=== PATIENT | male | born 1930 | race Caucasian/White ===

== ENCOUNTER 2017-02-26 19:17 | Emergency (ER) | payer MEDICARE ==
[2017-02-26] MEDS ORDERED: Ondansetron HCl/PF 4 MG/2 ML Vial ONE (19:57)
[2017-02-26 20:04] LABS: #Eosinphils 0.2 thou/uL (0.0-0.7); #Lymphocytes 2.3 thou/uL (1.20-3.40); #Monocytes 0.8 thou/uL (0.11-0.59); #Neutrophils 6.6 thou/uL (1.40-6.50); %Basophils 0.1 % (0.0-1.0); %Eosinophils 2.1 % (0.0-10.0); %Lymphocytes 23.2 % (21.0-51.0); %Monocytes 7.7 % (0.0-10.0); Hemoglobin 16.2 g/dL (14.0-18.0); Mean Corpuscular HGB CONC 33.9 g/dL (32.0-36.0); Mean Corpuscular Hemoglobin 30.4 pg (27.0-31.0); Mean Corpuscular Volume 89.4 fl (80.0-94.0); Mean Platelet Volume 6.7 fL (7.4-10.4); Platelet Count 330 thou/uL (130-400); RBC Distribution Width 12.5 % (11.5-14.5); Red Blood Cell (RBC) Count 5.33 mill/uL (4.70-6.10); White Blood Cell (WBC) Count 9.8 thou/uL (4.8-10.8)
--- NOTE | 2017-02-26 20:21 | RAD ---
CHEST TWO VIEW 02/26/17 HISTORY: Nausea and vomiting. Upper respiratory infection. COMPARISON: None. FINDINGS: Lungs without focal air space consolidation, pneumothorax or effusion. The cardiac silhouette and med iastinal contours are within normal limits. No acute osseous abnormality. IMPRESSION: No acute intrathoracic abnormality. POS: [facility]
[2017-02-26 20:27] LABS: ALT (SGPT) 37 U/L (8-55); AST (SGOT) 33 U/L (5-34); Alkaline Phosphatase 63 U/L (40-150); Anion Gap 15 mmol/L (10-20); BUN (Urea Nitrogen) 17 mg/dL (8.4-25.7); Bilirubin, Total 0.9 mg/dL (0.2-1.2); CK (CPK) 44 U/L (30-200); Calc. Creatinine Clearance 0 mL/min (70-130); Calcium 9.6 mg/dL (7.8-10.44); Carbon Dioxide 25 mmol/L (23-31); Chloride 99 mmol/L (98-107); Estimated GFR-MDRD Greater than 90; Glucose 138 mg/dL (83-110); Lipase 19 U/L (8-78); Potassium 3.8 mmol/L (3.5-5.1); Sodium 135 mmol/L (136-145)
[2017-02-26 20:30] LABS: Troponin I 0.012 ng/mL (< 0.028)
== END 2017-02-26 21:17 | disposition home or self-care (01) ==
LOC: ERS 19:17
DX: R11.2 Nausea with vomiting, unspecified (principal); R05 Cough
CPT/HCPCS: 36415; 71046; 80053; 82550; 82553; 83690; 84484; 85025; 93005; 94760; 96374; J2405

== ENCOUNTER 2017-10-18 13:32 | Outpatient (CLI) | payer MEDICARE ==
--- NOTE | 2017-10-20 20:12 | ULT ---
Arterial Doppler performed on 10/18/2017. Bilateral arterial Doppler ultrasound was performed. On the right, femoral, popliteal, posterior tibial and dorsalis pedis waveforms are biphasic with go od peak area of the curve. There is no step-off. Ankle-brachial index is 0.62. On the left, femoral, popliteal, posterior tibial, dorsalis pedis waveforms are biphasic with good pe ak area of the curve. There was a slight step off between the femoral and popliteal waveforms, but c linical significance of this should be correlated. Ankle-brachial index is 0.59. ASSESSMENT: Normal waveforms, but depressed ankle-brachial indices bilaterally consistent with claudication.
== END 2017-10-18 13:33 | disposition home or self-care (01) ==
LOC: ULT 13:32
PROVIDERS: ATTEND Family Medicine
DX: I73.9 Peripheral vascular disease, unspecified (principal)
CPT/HCPCS: 93922

== ENCOUNTER 2019-03-19 11:24 | Outpatient (CLI) | payer MEDICARE ==
--- NOTE | 2019-03-19 14:03 | RAD ---
CHEST 2 VIEWS: INDICATION: History of cough. COMPARISON: Prior exam dated 02/26/2017. FINDINGS: There are patchy areas of interstitial and ground-glass opacities seen throughout both lungs and pred ominantly in the upper lobe distribution. A prominent area is seen within the right lower lobe as we ll. No hansel consolidation is evident. No pleural effusion or pneumothorax is evident. Heart size is normal. No acute osseous abnormality is evident. IMPRESSION: Patchy areas of peripheral interstitial and airspace opacities suspicious for changes of bronchopneum onia. Recommend radiographic followup to resolution. CODE T POS: [facility]
== END 2019-03-19 11:25 | disposition home or self-care (01) ==
LOC: BICRAD 11:24
PROVIDERS: ATTEND Physician Assistant
DX: R05 Cough (principal); R91.8 Other nonspecific abnormal finding of lung field
CPT/HCPCS: 71046; 80048; 85025

== ENCOUNTER 2019-03-20 12:10 | Inpatient (IN) | payer MEDICARE ==
[2019-03-20 13:01] LABS: #Eosinphils 0.1 thou/uL (0.0-0.7); #Lymphocytes 1.7 thou/uL (1.20-3.40); #Monocytes 1.7 thou/uL (0.11-0.59); #Neutrophils 13.5 thou/uL (1.40-6.50); %Basophils 0.1 % (0.0-1.0); %Eosinophils 0.4 % (0.0-10.0); %Lymphocytes 9.8 % (21.0-51.0); %Monocytes 10.2 % (0.0-10.0); %Neutrophils 79.6 % (42.0-75.0); Hemoglobin 15.9 g/dL (14.0-18.0); Mean Corpuscular HGB CONC 31.7 g/dL (32.0-36.0); Mean Corpuscular Hemoglobin 27.6 pg (27.0-31.0); Mean Platelet Volume 7.6 fL (7.4-10.4); Platelet Count 293 thou/uL (130-400); RBC Distribution Width 12.2 % (11.5-14.5); Red Blood Cell (RBC) Count 5.77 mill/uL (4.70-6.10)
[2019-03-20 13:12] LABS: ALT (SGPT) 16 U/L (8-55); AST (SGOT) 27 U/L (5-34); Albumin 4.3 g/dL (3.4-4.8); Alkaline Phosphatase 74 U/L (40-110); Anion Gap 15 mmol/L (10-20); BUN (Urea Nitrogen) 24 mg/dL (8.4-25.7); Bilirubin, Total 1.4 mg/dL (0.2-1.2); CK (CPK) 491 U/L (30-200); Calc. Creatinine Clearance 0 mL/min (70-130); Calcium 9.6 mg/dL (7.8-10.44); Carbon Dioxide 28 mmol/L (23-31); Chloride 95 mmol/L (98-107); Estimated GFR-MDRD 76; Globulin 3.6 g/dL (2.4-3.5); Glucose 140 mg/dL (83-110); Lipase 15 U/L (8-78); Potassium 3.7 mmol/L (3.5-5.1); Protein, Total 7.9 g/dL (5.8-8.1); Sodium 134 mmol/L (136-145)
--- NOTE | 2019-03-20 13:27 | RAD ---
CHEST 1 VIEW: HISTORY: Cough, right upper chest pain. COMPARISON: 03/19/2019. FINDINGS: Scattered increased markings are noted with some progressive patchy alveolar nodular parenchymal koenig ges bilaterally but more so in the right lung concerning for developing pneumonia. Heart size is nor mal. No significant pleural effusion. IMPRESSION: Slightly worsening bilateral alveolar nodular opacity changes concerning for pneumonia. Treatment wi th short-term followup suggested. POS: [facility]
[2019-03-20] MEDS ORDERED: Cefepime 2 GM VIAL ONE (14:19)
[2019-03-20 14:21] LABS: Bilirubin Negative (Negative); Blood, Urine 3+ (Negative); Clarity Turbid (Clear); Glucose, Urine (Dipstick) Normal (Negative); Leukocyte 25 Leu/uL (Negative); Nitrite Negative (Negative); Protein, Urine (Dipstick) 200 mg/dL (Neg-Trace); RBC/HPF Greater than 50 HPF (0-3); Squamous Epithelial 0-3 HPF (0-3); Urobilinogen Normal mg/dL (Less than 2)
[2019-03-20 14:28] LABS: Bacteria/HPF 1+ HPF (None Seen)
[2019-03-20] MEDS ORDERED: Iopamidol-370 76% 500 ML 1 ML ONE (14:48)
[2019-03-20] MEDS ORDERED: Ondansetron PF 4 MG/2 ML Vial IVP PRN (15:05)
[2019-03-20] MEDS ORDERED: Ondansetron ODT 4 MG TAB PO PRN (15:05)
[2019-03-20] MEDS ORDERED: Bisacodyl 5 MG TAB PO PRN (15:05)
[2019-03-20] MEDS ORDERED: Calcium Carbonate 500 MG ChewTAB PO PRN (15:05)
[2019-03-20] MEDS ORDERED: Acetaminophen 325 MG TAB PO PRN (15:05)
[2019-03-20] MEDS ORDERED: Docusate 100 MG CAP PO PRN (15:06)
[2019-03-20] MEDS ORDERED: Melatonin 3 MG TAB PO PRN (15:06)
[2019-03-20] MEDS ORDERED: diphenhydrAMINE 25 MG CAP PO PRN (15:06)
[2019-03-20] MEDS ORDERED: Labetalol HCl 100 MG/20 ML VIAL SLOW IVP PRN (15:06)
--- NOTE | 2019-03-20 15:16 | CT ---
CT PULMONARY ANGIOGRAM CHEST WITH 3D RENDERING: HISTORY: Cough, bilateral pneumonia, dyspnea, right-sided chest pain. FINDINGS: Patchy alveolar nodular parenchymal changes primarily in the right middle lobe and right upper lobe w ith some minimal right pleural thickening. There are also some less marked changes in the left upper lobe and lingula, evidence for bilateral pneumonia. There is no convincing CT evidence for acute pu lmonary embolism. There are noted to be some scattered enlarged mediastinal and hilar lymph nodes wi th a right hilar node measuring 2.6 cm as well as some enlargement of the left hilar nodes and some c arinal nodes. There is 3-vessel coronary artery calcific disease. No evidence for aortic aneurysm o r dissection. Visualized upper abdomen is unremarkable without acute process. Small hiatal hernia. IMPRESSION: Patchy scattered alveolar nodular parenchymal changes mostly in the right upper lobe, right middle lo be, and left upper lobe and lingula, evidence for bilateral pneumonia. Minimal scattered enlarged ly mph nodes within the mediastinal and hilar regions. Minimal right-sided pleural thickening. Small h iatal hernia. Three-vessel coronary artery calcific disease. POS: [facility]
--- NOTE | 2019-03-20 16:39 | PDOC.HHP ---
Hospitalist HPI - History of Present Illness Shortness of breath History of Present Illness: Very pleasant 88 year old gentleman presents with shortness of breath. Patient recently seen in PCP office, diagnosed with bilateral pneumonia and was started on ABX, though he does not recall the name. Patient with worsening shortness of breath, cough with productive sputum, and subjective fever and chills. CTA of the chest on admission with bilateral pneumonia. Patient also notes that occasionally he does get some blood in his urine, though this has improved over the past few days. No other complaints. Hospitalist ROS - Review of Systems All other systems reviewed; all pertinent +/- noted in HPI/Subj Hospitalist History - Past Medical History Source: patient, old records Cardiac: reports: HTN - Family History Family History: reports: hypertension - Social History Smoking Status: Former smoker (3 packs a day for 20 years, though quit 30 years ago) Alcohol: reports: None Drugs: reports: none Living Situation: With Family Domestic Violence: Negative Activity level: independent ambulation - Exam General Appearance: NAD, awake alert Eye: PERRL, anicteric sclera ENT: normocephalic atraumatic, moist mucosa Neck: supple, symmetric, no lymphadenopathy Heart: no murmur, no gallops, no rubs Respiratory: no rales, normal chest expansion, no tachypnea, rales, rhonchi, wheezes Gastrointestinal: soft, non-tender, non-distended, no guarding, no rigidity Extremities: no edema Skin: no lesions, no rashes Neurological: cranial nerve grossly intact, no new deficit Musculoskeletal: normal strength, no muscle wasting Psychiatric: normal affect, normal behavior, A&O x 3 Hospitalist Results - Labs Result Diagrams: 03/20/19 Unknown 03/20/19 Unknown Lab results: WBC 17.0 thou/uL (4.8-10.8) H 03/20/19 Unknown Hgb 15.9 g/dL (14.0-18.0) 03/20/19 Unknown Hct 50.2 % (42.0-52.0) 03/20/19 Unknown MCV 87.0 fL (78.0-98.0) 03/20/19 Unknown Plt Count 293 thou/uL (130-400) 03/20/19 Unknown Neutrophils % 79.6 % (42.0-75.0) H 03/20/19 Unknown Sodium 134 mmol/L (136-145) L 03/20/19 Unknown Potassium 3.7 mmol/L (3.5-5.1) 03/20/19 Unknown Chloride 95 mmol/L (98-107) L 03/20/19 Unknown Carbon Dioxide 28 mmol/L (23-31) 03/20/19 Unknown BUN 24 mg/dL (8.4-25.7) 03/20/19 Unknown Creatinine 0.94 mg/dL (0.7-1.3) 03/20/19 Unknown Glucose 140 mg/dL (83-110) H 03/20/19 Unknown Lactic Acid 1.7 mmol/L (0.5-2.2) 03/20/19 Unknown Calcium 9.6 mg/dL (7.8-10.44) 03/20/19 Unknown Total Bilirubin 1.4 mg/dL (0.2-1.2) H 03/20/19 Unknown AST 27 U/L (5-34) 03/20/19 Unknown ALT 16 U/L (8-55) 03/20/19 Unknown Alkaline Phosphatase 74 U/L (40-110) 03/20/19 Unknown Creatine Kinase 491 U/L (30-200) H 03/20/19 Unknown Troponin I 0.018 ng/mL (< 0.028) 03/20/19 Unknown B-Natriuretic Peptide 42.3 pg/mL (0-100) 03/20/19 Unknown Serum Total Protein 7.9 g/dL (5.8-8.1) 03/20/19 Unknown Albumin 4.3 g/dL (3.4-4.8) 03/20/19 Unknown Lipase 15 U/L (8-78) 03/20/19 Unknown Urine Ketones 40 mg/dL (Negative) A 03/20/19 13:30 Urine Blood 3+ (Negative) A 03/20/19 13:30 Urine Nitrite Negative (Negative) 03/20/19 13:30 Ur Leukocyte Esterase 25 Roseanne/uL (Negative) 03/20/19 13:30 Urine RBC Greater than 50 HPF (0-3) A 03/20/19 13:30 Urine WBC 4-6 HPF (0-3) A 03/20/19 13:30 Ur Squamous Epith Cells 0-3 HPF (0-3) 03/20/19 13:30 Urine Bacteria 1+ HPF (None Seen) A 03/20/19 13:30 - Radiology Interpretation CT scan - chest Status: image reviewed by me Hospitalist H&P A/P - Problem (1) Bilateral pneumonia Code(s): J18.9 - PNEUMONIA, UNSPECIFIED ORGANISM Status: Acute (2) COPD exacerbation Code(s): J44.1 - CHRONIC OBSTRUCTIVE PULMONARY DISEASE W (ACUTE) EXACERBATION Status: Acute (3) Sepsis Code(s): A41.9 - SEPSIS, UNSPECIFIED ORGANISM Status: Acute (4) Cough Code(s): R05 - COUGH Status: Acute (5) Shortness of breath Code(s): R06.02 - SHORTNESS OF BREATH Status: Acute (6) Hematuria Code(s): R31.9 - HEMATURIA, UNSPECIFIED Status: Acute (7) Leukocytosis Code(s): D72.829 - ELEVATED WHITE BLOOD CELL COUNT, UNSPECIFIED Status: Acute - Plan Plan: Plan: Admit to medical unit Pulmonary specific ABX Blood Cx, de escalate to Cx and sensitivity as able Duo nebs scheduled and PRN IV steroids CTA chest noted with bilateral PNA Remote history of 3 PPD for 20 years, though not formally diagnosed with COPD or emphysema in the past Hx of hematuria Renal US to further eval UA with elevated RBC, unclear etiology Continue other home meds as able Blood pressure control Blood sugar control GI PPX DVT PPX
[2019-03-20] MEDS ORDERED: methylPREDNISolone Sod Succ 40 MG VIAL IVP SCH (16:45)
[2019-03-20] MEDS: cefTRIAXone\\ROCEPHIN 2 GM in Sodium Chloride 0.9% 100 ML IVPB SCH (17:40)
[2019-03-20 18:10] VITALS: BMI 23.9
[2019-03-20] MEDS ORDERED: Mag-Al Plus 1200 MG/1200 MG/120 MG/30 ML UDCUP PO PRN (18:20)
[2019-03-20] MEDS: Azithromycin 500 MG in Sodium Chloride 0.9% 250 ML 250 ML IVPB SCH (21:09)
[2019-03-20] MEDS: Famotidine 20 MG TAB PO SCH (21:09)
[2019-03-20] MEDS: Heparin 5,000 UNITS/ML VIAL SC SCH (21:19)
[2019-03-21] MEDS: Benzonatate 100 MG CAP PO PRN ×2 (05:50→21:52)
[2019-03-21 06:31] LABS: Anion Gap 11 mmol/L (10-20); BUN (Urea Nitrogen) 22 mg/dL (8.4-25.7); Calc. Creatinine Clearance 71 mL/min (70-130); Calcium 8.7 mg/dL (7.8-10.44); Carbon Dioxide 26 mmol/L (23-31); Chloride 102 mmol/L (98-107); Estimated GFR-MDRD Greater than 90; Glucose 180 mg/dL (83-110); Potassium 4.1 mmol/L (3.5-5.1); Sodium 135 mmol/L (136-145)
[2019-03-21 08:24] LABS: Band 5 % (5-11); Hemoglobin 14.6 g/dL (14.0-18.0); Lymphocytes 19 % (21-51); MDiff Complete? YES; Mean Corpuscular HGB CONC 31.6 g/dL (32.0-36.0); Mean Corpuscular Hemoglobin 28.3 pg (27.0-31.0); Mean Corpuscular Volume 89.6 fL (78.0-98.0); Monocytes 8 % (0-10); Neutrophil 67 % (42-75); Platelet Count 252 thou/uL (130-400); Platelet Morphology Comment Appears Adequate; RBC Distribution Width 12.5 % (11.5-14.5); RBC Morphology Normal; Reactive Lymphocytes 1 % (0-10); Red Blood Cell (RBC) Count 5.17 mill/uL (4.70-6.10); White Blood Cell (WBC) Count 12.6 thou/uL (4.8-10.8)
[2019-03-21] MEDS: Heparin 5,000 UNITS/ML VIAL SC SCH ×3 (08:35→21:53)
[2019-03-21] MEDS: Famotidine 20 MG TAB PO SCH ×2 (08:36→21:52)
[2019-03-21] MEDS ORDERED: methylPREDNISolone Sod Succ 40 MG VIAL IVP SCH (09:00)
--- NOTE | 2019-03-21 12:20 | PRG ---
DATE OF SERVICE: 03/21/2019 SUBJECTIVE: The patient is seen and examined at the bedside. He does not have much complaints to offer. He has some cough. He is not short of breath. His appetite is fair. OBJECTIVE: VITAL SIGNS: Blood pressure is 137/73, pulse is 82, respirations 16, and O2 saturation is 99% on room air. HEENT: His head is atraumatic and normocephalic. Eyes are PERRLA. Sclerae are nonicteric. Oral mucosa is moist. NECK: Supple. LUNGS: Few rales in the mid portion of the right lung. HEART: S1, S2 normal. No S3. No S4. ABDOMEN: Soft, nontender, nondistended. EXTREMITIES: No clubbing, cyanosis, or edema. NEUROLOGIC: He is alert and oriented x4. There is no any motor or sensory deficits. LABORATORY DATA: Labs showed white count of 12.6, hemoglobin of 14.6, hematocrit 46.3, platelet count 252,000. Chemistry showed sodium of 135, potassium 4.1, chloride 102, CO2 of 26, BUN 22, creatinine 0.78, glucose 140. Microbiology; two blood cultures, no growth to date. Influenza type A and B testing negative. IMPRESSION: 1. Pneumonia, suspect aspiration. 2. Chronic obstructive pulmonary disease. 3. Hematuria. PLAN: Urology consultation. Continue antibiotics, azithromycin and Rocephin. Discontinue methylprednisolone and barium swallow studies and DVT prophylaxis. Job ID: [id number]
--- NOTE | 2019-03-21 13:27 | ULT ---
US Renal Bilateral STANDARD HISTORY: Hematuria COMPARISON: None. FINDINGS: The right kidney measures 12.8 cm in length and the left kidney measures 11.9 cm in length. No hydronephrosis seen on either side. There are cysts in the kidneys measuring 2 cm on the right and 1.6 cm on the left. The urinary bladder is unremarkable. The prostate is enlarged and contains ca lcifications. IMPRESSION: Bilateral renal cysts.
--- NOTE | 2019-03-21 14:03 | RAD ---
MODIFIED BARIUM SWALLOW IN PRESENCE OF SPEECH THERAPIST: HISTORY: Dysphagia, feeding difficulties FINDINGS: Premature spillage is noted. No laryngeal penetration or aspiration is seen. No persistent pooling of contrast is seen in the valleculae or piriform sinuses. Please see recommendations of the speech therapist for further management.
[2019-03-21] MEDS: cefTRIAXone\\ROCEPHIN 2 GM in Sodium Chloride 0.9% 100 ML IVPB SCH (15:35)
[2019-03-21] MEDS: Azithromycin 500 MG in Sodium Chloride 0.9% 250 ML 250 ML IVPB SCH (16:27)
--- NOTE | 2019-03-22 02:14 | CON ---
DATE OF CONSULTATION: 03/21/2019 CONSULTING: [facility]. CONSULTED: Dr. Martínez. REASON FOR CONSULTATION: Gross hematuria. HISTORY OF PRESENT ILLNESS: Mr. Ortiz is an 88-year-old white male, who presented to the emergency room with shortness of breath. He was seen recently by his primary care physician and diagnosed with bilateral pneumonia and was started on outpatient antibiotics. He did not get better and came into the emergency room, where he was admitted. During this time, the patient stated that he developed gross hematuria at which point, I was consulted. On my discussion with the patient, he states he has had gross hematuria previously. He had some vascular issues and was started on Eliquis by his primary care physician. He developed gross hematuria at that time and was taken off the Eliquis at which point the gross hematuria resolved. He again had gross hematuria on this admission, but states it has currently gone again and he only passed blood on a few void and subsequently disappeared. He denies any flank pain, dysuria, lower urinary tract symptoms, difficulty urinating, blood clots during the episodes of hematuria. He has no history of urolithiasis, previous urologic surgeries, family history of prostate cancer or urinary tract infections in the past. He is a smoker, but quit and smoked for approximately 20 years. ALLERGIES: PENICILLIN. HOME MEDICATIONS: Multivitamin. PAST MEDICAL HISTORY: Hypertension. PAST SURGICAL HISTORY: None. FAMILY HISTORY: Noncontributory for urologic issues. SOCIAL HISTORY: The patient is a former smoker, smoked three packs a day for 20 years and quit 30 years ago. Denies alcohol abuse or illicit drug use. REVIEW OF SYSTEMS: A 12-point review of systems reviewed and negative other than what was commented on the HPI, specifically his pulmonary issues. PHYSICAL EXAMINATION: VITAL SIGNS: Temperature 98.1, pulse 86, respirations 20, blood pressure 133/67, saturation 93% on room air. GENERAL: No apparent distress, communicative and alert, well nourished, well developed, appears stated age. HEENT: Normocephalic, atraumatic. Pupils are symmetric and round. Trachea midline. Moist mucous membranes. CARDIOVASCULAR: Regular rate and rhythm. Normal S1, S2. Symmetric pulses. CHEST: No increased work of breathing. Symmetric expansion. LUNGS: Bibasilar crackles. ABDOMEN: Soft, nontender, and nondistended. Positive bowel sounds. No organomegaly. No obvious hernias. No incisions. : No focal lesions. TESTES: Bilaterally descended. RECTAL: Deferred at this time. EXTREMITIES: No clubbing, cyanosis, or edema. MUSCULOSKELETAL: No joint deformities or joint erythema noted. Full range of motion. SKIN: Warm and dry. No rash or lesions. Slightly decreased turgor. NEUROLOGIC: Cranial nerves 2 through 12 grossly intact. No focal or sensory motor deficits identified. PSYCHIATRIC: Alert and oriented x3. Appropriate mood and affect. LABORATORY EVALUATION: Full set of labs are in the [facility] system, which I have reviewed. Of note, the patient's white count is 12.6, hemoglobin of 14.6. Creatinine is 0.78. Urinalysis demonstrates turbid urine with 3+ blood greater than 50 rbc's, 4-6 white cells, 1+ bacteria. There is no urine culture on file. Renal ultrasound, which has been performed on March 20 demonstrates bilateral renal cysts. Otherwise, urinary bladder was unremarkable. ASSESSMENT AND PLAN: An 88-year-old white male with gross hematuria with previous smoking history. Given the recurrent bleeding episodes, he is extremely high risk for a possible urothelial malignancy. Ultrasound is not sensitive enough to replace CT urogram, which would be the recommended imaging protocol for this individual. He would also need an outpatient cystoscopy. I have talked to the patient about this and he would like to proceed forward. I will get a PSA test on him. I do not think the patient is in range for PSA screening but if his PSA is extremely elevated indicative of advanced to metastatic prostate cancer, this could also potentially be a source of hematuria. I will go ahead and order a CT urogram while he is in the hospital and I have talked to the patient about doing an outpatient cystoscopy. He would like to proceed with this, but I have told him it would be best for him to go ahead and get over his pneumonia and once he is discharged, he will schedule appointment with my office for cystoscopy. I have given him my card and contact information. Since his hematuria has resolved currently, I do not think there is anything further for me to do on this admission. I will review a CT scan, but I will go ahead and sign off on his case. Please re-consult if there are any further questions or concerns. Job ID: [id number]
--- NOTE | 2019-03-22 08:21 | CT ---
CT Abdomen Pelvis W WO con HISTORY: Gross hematuria COMPARISON: None. FINDINGS: Tiny bilateral pleural effusions are noted. No calcified gallstones are seen. There is a 7 mm low-density lesion in the lateral segment of the left lobe of the liver, too small to characterize. The spleen, and adrenal glands appear normal. There is a 5 mm low-density lesion in the body of the pancreas. No calculi are seen in the kidneys ureters or the urinary bladder. No hydroureteronephrosis seen on e ither side. The prostate is enlarged and contains calcifications. There is a 15 mm cyst in either kidney. No enhancing renal mass is seen. There is normal contrast excretion into the ureters and urin jenelle bladder. No evidence of free air, free fluid or lymphadenopathy is seen in the abdomen or pelvis. There are va scular calcifications without evidence of aneurysmal dilatation of the abdominal aorta. There are degenerative changes in the spine. The small bowel loops are not abnormally dilated. A normal-appeari ng appendix is present. IMPRESSION: 1. No evidence of urinary tract calculi or obstruction. 2. Renal cysts 3. Prostatic enlargement 4. Indeterminate 5 mm low-density lesion in the body of the pancreas. Endoscopic ultrasound would be helpful. 5. 7 mm indeterminate low-density lesion in the left lobe of the liver
[2019-03-22] MEDS: Famotidine 20 MG TAB PO SCH ×2 (08:36→22:05)
[2019-03-22] MEDS: Heparin 5,000 UNITS/ML VIAL SC SCH ×3 (08:36→22:06)
[2019-03-22] MEDS: Benzonatate 100 MG CAP PO PRN ×2 (12:11→22:05)
[2019-03-22] MEDS ORDERED: Iopamidol-370 76% 500 ML 1 ML ONE (13:00)
[2019-03-22] MEDS: cefTRIAXone\\ROCEPHIN 2 GM in Sodium Chloride 0.9% 100 ML IVPB SCH (16:11)
[2019-03-22] MEDS: Azithromycin 250 MG TAB PO SCH (17:06)
--- NOTE | 2019-03-22 20:38 | PDOC.HOSPP ---
- Subjective Encounter Date: 03/22/19 Encounter Time: 14:15 Subjective: no overnight events. This morning, feels well and has no complaints. - Objective Vital Signs & Weight: Weight Admit Weight 171 lb 11.841 oz Weight 171 lb 11.841 oz I&O: 03/21/19 03/22/19 03/23/19 06:59 06:59 06:59 Intake Total 240 250 960 Balance 240 250 960 Result Diagrams: 03/21/19 07:23 03/21/19 05:38 Hospitalist ROS - Review of Systems Constitutional: denies: fever, chills, sweats, weakness, malaise, other Respiratory: reports: cough, dry. denies: shortness of breath, hemoptysis, SOB with excertion, pleuritic pain, sputum, wheezing, other Cardiovascular: denies: chest pain, palpitations, orthopnea, paroxysmal noc. dyspnea, edema, light headedness, other Gastrointestinal: denies: nausea, vomiting, abdominal pain, diarrhea, constipation, melena, hematochezia, other Genitourinary: denies: dysuria, frequency, incontinence, hematuria, retention, other - Medication Medications: Active Medications Generic Name Dose Route Start Last Admin Trade Name Freq PRN Reason Stop Dose Admin Azithromycin 500 mg 03/22/19 17:00 03/22/19 17:06 Zithromax PO 500 mg 1700 RICKY Administration Benzonatate 100 mg 03/20/19 15:06 03/22/19 12:11 Tessalon PO 100 mg Q4H PRN Administration Cough Calcium Carbonate 1,000 mg 03/20/19 15:05 03/20/19 21:19 Tums PO 1,000 mg Q4H PRN Administration Heartburn or Indigestion Famotidine 20 mg 03/20/19 21:00 03/22/19 08:36 Pepcid PO 20 mg BID RICKY Administration Heparin Sodium (Porcine) 5,000 units 03/20/19 21:00 03/22/19 14:34 Heparin SC Not Given TID [facility] Ceftriaxone Sodium 2 gm/ 100 mls @ 200 mls/hr 03/20/19 16:00 03/22/19 16:11 Sodium Chloride IVPB 100 mls Q24HR RICKY Administration - Exam General Appearance: NAD, awake alert General - other findings: fidgity Heart: RRR, no murmur, no gallops, no rubs Respiratory: CTAB, no wheezes, no rales, no ronchi Gastrointestinal: soft, non-tender, non-distended, normal bowel sounds Extremities: no cyanosis, no clubbing, no edema Neurological: cranial nerve grossly intact Psychiatric: normal affect, A&O x 3 Hosp A/P - Plan * persistent pneumonia * patient clinically improving * will continue rocephin and azithro for CAP * positive UA, hematuria * no urine cultures; patient doesn't endorse symptoms of UTI * on ceftriaxone * hematuria may be due to urethritis, prostatitis (also PSA) however other etiologies need to be ruled out; urology onboard and pending urogram * pancreatic and liver masses on CT * GI consulted * * Full code *
[2019-03-23] MEDS: Benzonatate 100 MG CAP PO PRN ×2 (05:37→19:46)
[2019-03-23] MEDS: Heparin 5,000 UNITS/ML VIAL SC SCH ×3 (08:01→19:48)
[2019-03-23] MEDS: Famotidine 20 MG TAB PO SCH ×2 (08:16→19:46)
[2019-03-23] MEDS: cefTRIAXone\\ROCEPHIN 2 GM in Sodium Chloride 0.9% 100 ML IVPB SCH (17:32)
[2019-03-23] MEDS: Azithromycin 250 MG TAB PO SCH (17:32)
--- NOTE | 2019-03-23 22:12 | PDOC.HOSPP ---
- Subjective Encounter Date: 03/23/19 Encounter Time: 10:00 Subjective: no overnight events. This morning, has no complaints. Continues treatment for CAP to which he responded well. Pending evaluation by GI for liver and pancreatic lesions. - Objective Vital Signs & Weight: Vital Signs (12 hours) Temp Pulse Resp BP Pulse Ox 03/23/19 21:55 92 L 03/23/19 19:15 98.4 F 87 20 146/73 H 92 L 03/23/19 17:33 98.1 F 103 H 20 164/74 H 95 03/23/19 13:10 98.3 F 95 20 158/78 H 95 Weight Admit Weight 171 lb 11.841 oz Weight 171 lb 11.841 oz I&O: 03/22/19 03/23/19 03/24/19 06:59 06:59 06:59 Intake Total 250 960 900 Balance 250 960 900 Result Diagrams: 03/21/19 07:23 03/21/19 05:38 Hospitalist ROS - Review of Systems Constitutional: denies: fever, chills, sweats, weakness, malaise, other Respiratory: denies: cough, dry, shortness of breath, hemoptysis, SOB with excertion, pleuritic pain, sputum, wheezing, other Cardiovascular: denies: chest pain, palpitations, orthopnea, paroxysmal noc. dyspnea, edema, light headedness, other Gastrointestinal: denies: nausea, vomiting, abdominal pain, diarrhea, constipation, melena, hematochezia, other Skin: denies: rash Neurological: denies: weakness - Medication Medications: Active Medications Generic Name Dose Route Start Last Admin Trade Name Kasey PRN Reason Stop Dose Admin Azithromycin 500 mg 03/22/19 17:00 03/23/19 17:32 Zithromax PO 500 mg 1700 RICKY Administration Benzonatate 100 mg 03/20/19 15:06 03/23/19 19:46 Tessalon PO 100 mg Q4H PRN Administration Cough Calcium Carbonate 1,000 mg 03/20/19 15:05 03/20/19 21:19 Tums PO 1,000 mg Q4H PRN Administration Heartburn or Indigestion Famotidine 20 mg 03/20/19 21:00 03/23/19 19:46 Pepcid PO 20 mg BID RICKY Administration Heparin Sodium (Porcine) 5,000 units 03/20/19 21:00 03/23/19 19:48 Heparin SC Not Given TID RICKY Ceftriaxone Sodium 2 gm/ 100 mls @ 200 mls/hr 03/20/19 16:00 03/23/19 17:32 Sodium Chloride IVPB 100 mls Q24HR RICKY Administration - Exam General Appearance: NAD, awake alert Neck: no JVD Heart: RRR, no murmur, no gallops, no rubs, normal peripheral pulses Respiratory: CTAB, no wheezes, no rales, no ronchi, normal chest expansion, no tachypnea, normal percussion Gastrointestinal: soft, non-tender, non-distended, normal bowel sounds, no palpable masses, no hepatomegaly, no splenomegaly, no bruit Extremities: no edema Psychiatric: normal affect, normal behavior, A&O x 3 Hosp A/P - Plan * persistent pneumonia * patient clinically improving * will continue rocephin and azithro for CAP until tomorrow (d5) considering prompt response to therapy * positive UA, hematuria * no urine cultures; patient doesn't endorse symptoms of UTI * on ceftriaxone * hematuria may be due to urethritis, prostatitis (also PSA) however other etiologies need to be ruled out; urology onboard and will continue workup as outpatient * pancreatic and liver masses on CT * GI consulted * * Full code *
--- NOTE | 2019-03-24 02:00 | CON ---
DATE OF CONSULTATION: 03/23/2019 REASON FOR CONSULTATION: Abnormal imaging showing cystic lesions of the liver and pancreas. CONSULTING PROVIDER: Alex Barry MD HISTORY OF PRESENT ILLNESS: The patient is an 88-year-old male with past medical history of hypertension and chronic obstructive pulmonary disease, initially presenting with complaints of shortness of breath. He states that he was in his usual state of health until approximately 3 to 4 days ago when he began having increasing shortness of breath, productive cough and subjective fevers and chills. With worsening of these symptoms, they ultimately brought him to the ER for further evaluation and on evaluation, he was noted to have bilateral pneumonia on CT scan. He was subsequently started on antibiotic therapy and has been improving over the last few days. However, also on admission, he was noted to have hematuria and was seen by Dr. Martínez (Urology) for further evaluation. With the episode of hematuria, a CT scan of the abdomen and pelvis was ultimately ordered that showed the incidental finding of a 7 mm low-density lesion within the left liver lobe in addition to a 5 mm low-density lesion within the body of the pancreas. Upon questioning the patient today, he states that he is feeling better, although he continues to have mild shortness of breath and continue persistent cough. He also complains of increased diarrhea having approximately 3 to 4 small volume liquid bowel movements over the last 24 hours ever since the antibiotic therapy was started for his pneumonia. Otherwise, he denies any nausea, vomiting, fevers, chills, hematemesis, melena, hematochezia, dysphagia, odynophagia, jaundice, or weight loss. REVIEW OF SYSTEMS: A 10-category review of systems was obtained with all responses negative except for the pertinent positives as listed in HPI. PAST MEDICAL HISTORY: As per HPI. PAST SURGICAL HISTORY: None. FAMILY HISTORY: Denies any GI malignancies. SOCIAL HISTORY: Denies any tobacco, alcohol, or illicit drug use. OUTPATIENT MEDICATIONS: Reviewed. ALLERGIES: PENICILLIN. PHYSICAL EXAMINATION: VITAL SIGNS: Temperature 98.4, pulse 87, blood pressure 146/73, respiratory rate 20, saturating 92% on room air. GENERAL: The patient was lying in bed, in no acute distress. Alert and oriented x4. HEENT: Normocephalic, atraumatic. NECK: Supple. No JVD or scleral icterus noted. CARDIOVASCULAR: Regular rate and rhythm with no discernible murmurs, gallops, or rubs. RESPIRATORY: Decreased breath sounds auscultated in the bilateral lower lung loomis with possible crackles. ABDOMEN: Normoactive bowel sounds. Soft, nontender, and nondistended. EXTREMITIES: No cyanosis, clubbing, or edema. LABORATORY DATA: CBC with a white blood cell count of 12.6, hemoglobin 14.6, hematocrit 46.3, platelets 252. Chemistry with a sodium of 135, potassium 4.1, chloride 102, CO2 of 26, BUN 22, creatinine 0.78, glucose 180, AST 29, ALT 16, alkaline phosphatase 74, total bilirubin 1.4, creatine kinase 491, lipase 15. IMAGING DATA: CT angiography was performed on March 20, 2019, which showed patchy alveolar nodular parenchymal change in the right upper lobe, right middle lobe, and left upper lobe consistent with pneumonia. There was concern for aspiration. Some modified barium swallow study was performed on March 21, which showed no evidence of penetration or aspiration. CT of the abdomen and pelvis was obtained on March 22, which showed a 7 mm low-density lesion within the left liver lobe in addition to a 5 mm low-density lesion within the body of the pancreas. ASSESSMENT AND PLAN: The patient is an 88-year-old male with past medical history of hypertension and chronic obstructive pulmonary disease, presenting with multilobar pneumonia, hematuria, diarrhea secondary to antibiotic administration, and abnormal findings on CT scan with cystic lesions of the liver and pancreas. Abnormal imaging of the GI tract/liver and pancreatic cysts. The patient was initially admitted to the hospital for management of a multilobar pneumonia and during the course of this hospitalization was noted to have hematuria, which prompted a CT scan of the abdomen and pelvis. As part of an incidental finding on the CT of the abdomen and pelvis, the patient was noted to have a 7 mm lesion within the left lower lobe of the liver in addition to a 5 mm lesion within the body of the pancreas. Based on the current characteristics on imaging of both of these lesions, they both appear to be cystic in nature. Given the size of both of these lesions, the likelihood of a malignant process is extremely low. Simple cyst within the liver are very common and incidentally found on imaging frequently. Based on the current radiological characteristics of the liver lesion, I would characterize this as a benign simple cyst, which carries no malignancy potential at all. However, the pancreatic cyst could potentially be a different story in that cystic lesions of the pancreas have a higher likelihood of malignant transformation. However, given the fact that this pancreatic cyst is only 5 mm in size, it cannot be further characterized due to its small size. Endoscopic ultrasound is not usually employed until the cyst becomes larger than 2.5 to 3 cm in diameter. Per guidelines, they recommend interval surveillance of the pancreatic cystic lesions over time to evaluate for interval change in size or change in the composition (having a solid component to it). At this time, I would consider both of these cystic lesions to be benign with surveillance of the pancreatic lesion indicated only. RECOMMENDATIONS: 1. Would continue with broad-spectrum antibiotics as part of treatment for his pneumonia. 2. Would continue to monitor his diarrhea and if having more frequent bowel movements, we will consider obtaining stool studies for Clostridium difficile. 3. Would repeat a CT scan of the abdomen and pelvis with pancreatic protocol for better slices through the pancreas and better evaluation of the cystic lesion of the pancreas. If further imaging at that time shows no additional change, I would recommend repeat imaging in 6 months after that, again to survey this particular lesion. 4. The liver and cystic lesions are not contributing to the current clinical situation and require no further workup at this time. 5. Diarrhea. The patient is presenting with increased shortness of breath and was noted to have a multilobar pneumonia for which the patient was placed on broad-spectrum antibiotics. After initiation of antibiotic therapy, the patient has started to have diarrhea characterized as anywhere between 3 and 5, liquid small volume stools per day. At this time, it seems to be more related to antibiotic administration as opposed to another infection. Given the low likelihood of malignant potential of the cystic lesions in the liver and pancreas, we will sign off at this time. Please call with any additional questions. Job ID: [id number]
[2019-03-24] MEDS: Benzonatate 100 MG CAP PO PRN ×2 (05:29→19:42)
[2019-03-24 07:01] LABS: Band 6 % (5-11); Hemoglobin 14.6 g/dL (14.0-18.0); Lymphocytes 3 % (21-51); MDiff Complete? YES; Mean Corpuscular HGB CONC 33.7 g/dL (32.0-36.0); Mean Corpuscular Hemoglobin 29.6 pg (27.0-31.0); Mean Corpuscular Volume 87.6 fL (78.0-98.0); Mean Platelet Volume 7.7 fL (7.4-10.4); Neutrophil 91 % (42-75); Platelet Count 280 thou/uL (130-400); Platelet Morphology Comment Appears Adequate; RBC Distribution Width 12.2 % (11.5-14.5); RBC Morphology Normal; Red Blood Cell (RBC) Count 4.93 mill/uL (4.70-6.10); White Blood Cell (WBC) Count 13.9 thou/uL (4.8-10.8)
[2019-03-24 07:07] LABS: Anion Gap 11 mmol/L (10-20); BUN (Urea Nitrogen) 17 mg/dL (8.4-25.7); Calc. Creatinine Clearance 75 mL/min (70-130); Calcium 8.4 mg/dL (7.8-10.44); Carbon Dioxide 27 mmol/L (23-31); Chloride 101 mmol/L (98-107); Estimated GFR-MDRD Greater than 90; Glucose 155 mg/dL (83-110); Magnesium 2.1 mg/dL (1.6-2.6); Potassium 3.3 mmol/L (3.5-5.1); Sodium 136 mmol/L (136-145)
[2019-03-24] MEDS: Heparin 5,000 UNITS/ML VIAL SC SCH ×3 (08:47→19:48)
[2019-03-24] MEDS: Famotidine 20 MG TAB PO SCH ×2 (09:00→19:42)
[2019-03-24] MEDS: HYDROcodone/Acetaminophen 5/325 mg Tablet PO PRN ×2 (12:36→19:42)
[2019-03-24] MEDS: cefTRIAXone\\ROCEPHIN 2 GM in Sodium Chloride 0.9% 100 ML IVPB SCH (17:05)
[2019-03-24] MEDS: Azithromycin 250 MG TAB PO SCH (17:05)
--- NOTE | 2019-03-24 17:12 | PDOC.HOSPP ---
- Subjective Encounter Date: 03/24/19 Encounter Time: 17:10 Subjective: Mr. Ortiz was seen today in follow-up of pneumonia. He does not have any new complaints. He says he continues to feel very weak. He almost fell in the bathroom last night. He admits his cough has improved. - Objective Vital Signs & Weight: Vital Signs (12 hours) Temp Pulse Resp BP Pulse Ox 03/24/19 11:01 107 H 18 03/24/19 08:00 98 F 107 H 19 164/70 H 91 L 03/24/19 05:22 98.2 F 98 18 155/66 H 93 L Weight Admit Weight 171 lb 11.841 oz Weight 171 lb 11.841 oz I&O: 03/23/19 03/24/19 03/25/19 06:59 06:59 06:59 Intake Total 960 1250 Balance 960 1250 Result Diagrams: 03/24/19 06:06 03/24/19 06:06 Hospitalist ROS - Medication Medications: Active Medications Generic Name Dose Route Start Last Admin Trade Name Freq PRN Reason Stop Dose Admin Hydrocodone Bitart/Acetaminophen 1 tab 03/20/19 15:05 03/24/19 12:36 [place] 5/325 PO 1 tab Q4H PRN Administration Moderate to Severe Pain (6-10) Albuterol/Ipratropium 3 ml 03/20/19 15:06 03/24/19 11:01 Duoneb NEB 3 ml [id number] PRN Administration SOB &/or Wheezing Azithromycin 500 mg 03/22/19 17:00 03/24/19 17:05 Zithromax PO 500 mg 1700 RICKY Administration Benzonatate 100 mg 03/20/19 15:06 03/24/19 05:29 Tessalon PO 100 mg Q4H PRN Administration Cough Calcium Carbonate 1,000 mg 03/20/19 15:05 03/20/19 21:19 Tums PO 1,000 mg Q4H PRN Administration Heartburn or Indigestion Famotidine 20 mg 03/20/19 21:00 03/24/19 09:00 Pepcid PO 20 mg BID RICKY Administration Heparin Sodium (Porcine) 5,000 units 03/20/19 21:00 03/24/19 09:01 Heparin SC Not Given TID RICKY Ceftriaxone Sodium 2 gm/ 100 mls @ 200 mls/hr 03/20/19 16:00 03/24/19 17:05 Sodium Chloride IVPB 100 mls Q24HR RICKY Administration - Exam Eye: PERRL Heart: RRR, no murmur, no gallops, no rubs, normal peripheral pulses Respiratory: CTAB, no wheezes, no rales, no ronchi, normal chest expansion, no tachypnea, normal percussion Gastrointestinal: soft, non-tender, non-distended, normal bowel sounds, no palpable masses, no hepatomegaly, no splenomegaly Extremities: no cyanosis Hosp A/P (1) Bilateral pneumonia Code(s): J18.9 - PNEUMONIA, UNSPECIFIED ORGANISM Status: Acute (2) Hypertension Code(s): I10 - ESSENTIAL (PRIMARY) HYPERTENSION Status: Chronic (3) 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 I suspect he may need a stay in [facility] or Rehab prior to discharge * HTN- blood pressure is a bit elevated- will monitor- continue the current regimen for now
[2019-03-25] MEDS: HYDROcodone/Acetaminophen 5/325 mg Tablet PO PRN ×3 (03:50→23:38)
[2019-03-25] MEDS: Heparin 5,000 UNITS/ML VIAL SC SCH ×3 (09:04→20:55)
[2019-03-25] MEDS: Famotidine 20 MG TAB PO SCH ×2 (09:12→20:55)
[2019-03-25] MEDS: Benzonatate 100 MG CAP PO PRN (13:45)
--- NOTE | 2019-03-25 14:30 | PDOC.HOSPP ---
- Subjective Encounter Date: 03/25/19 Encounter Time: 14:29 Subjective: Mr. Ortiz was seen today in follow-up of pneumonia. He continues to cough. He says he felt great this morning, but this afternoon he feels weak. - Objective Vital Signs & Weight: Vital Signs (12 hours) Temp Pulse Resp BP Pulse Ox 03/25/19 08:00 92 L 03/25/19 07:24 98.2 F 101 H 18 164/67 H 92 L Weight Admit Weight 171 lb 11.841 oz Weight 171 lb 11.841 oz I&O: 03/24/19 03/25/19 03/26/19 06:59 06:59 06:59 Intake Total 1250 1000 Balance 1250 1000 Result Diagrams: 03/24/19 06:06 03/24/19 06:06 Hospitalist ROS - Medication Medications: Active Medications Generic Name Dose Route Start Last Admin Trade Name Freq PRN Reason Stop Dose Admin Hydrocodone Bitart/Acetaminophen 1 tab 03/20/19 15:05 03/25/19 09:12 [place] 5/325 PO 1 tab Q4H PRN Administration Moderate to Severe Pain (6-10) Albuterol/Ipratropium 3 ml 03/20/19 15:06 03/24/19 20:48 Duoneb NEB 3 ml [id number] PRN Administration SOB &/or Wheezing Azithromycin 500 mg 03/22/19 17:00 03/24/19 17:05 Zithromax PO 500 mg 1700 RICKY Administration Benzonatate 100 mg 03/20/19 15:06 03/25/19 13:45 Tessalon PO 100 mg Q4H PRN Administration Cough Calcium Carbonate 1,000 mg 03/20/19 15:05 03/20/19 21:19 Tums PO 1,000 mg Q4H PRN Administration Heartburn or Indigestion Famotidine 20 mg 03/20/19 21:00 03/25/19 09:12 Pepcid PO 20 mg BID RICKY Administration Heparin Sodium (Porcine) 5,000 units 03/20/19 21:00 03/25/19 09:31 Heparin SC Not Given TID RICKY Ceftriaxone Sodium 2 gm/ 100 mls @ 200 mls/hr 03/20/19 16:00 03/24/19 17:05 Sodium Chloride IVPB 100 mls Q24HR RICKY Administration - Exam Eye: PERRL Heart: RRR, no murmur, no gallops, no rubs, normal peripheral pulses Respiratory: CTAB, rales (+ rales, faint at both bases), rhonchi Gastrointestinal: soft, non-tender, non-distended, normal bowel sounds Extremities: no cyanosis, no clubbing, no edema Hosp A/P (1) Bilateral pneumonia Code(s): J18.9 - PNEUMONIA, UNSPECIFIED ORGANISM Status: Acute (2) Hypertension Code(s): I10 - ESSENTIAL (PRIMARY) HYPERTENSION Status: Chronic (3) 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
[2019-03-25] MEDS: guaiFENesin/Codeine Phosphate 200 mg/20 mg 10 ml UD Cup PO PRN (17:31)
[2019-03-25] MEDS: Cefdinir 300 MG CAP PO SCH (20:54)
[2019-03-26] MEDS: Famotidine 20 MG TAB PO SCH ×2 (07:54→20:42)
[2019-03-26] MEDS: Cefdinir 300 MG CAP PO SCH ×2 (07:54→20:42)
[2019-03-26] MEDS: Heparin 5,000 UNITS/ML VIAL SC SCH ×3 (07:55→20:42)
[2019-03-26 08:57] LABS: Anion Gap 17 mmol/L (10-20); BUN (Urea Nitrogen) 23 mg/dL (8.4-25.7); Calc. Creatinine Clearance 70 mL/min (70-130); Calcium 8.5 mg/dL (7.8-10.44); Carbon Dioxide 23 mmol/L (23-31); Chloride 100 mmol/L (98-107); Estimated GFR-MDRD Greater than 90; Glucose 160 mg/dL (83-110); Potassium 3.5 mmol/L (3.5-5.1); Sodium 136 mmol/L (136-145)
[2019-03-26 09:40] LABS: Band 3 % (5-11); Eosinophils 2 % (0-10); Hemoglobin 15.1 g/dL (14.0-18.0); Lymphocytes 9 % (21-51); MDiff Complete? YES; Mean Corpuscular Hemoglobin 27.9 pg (27.0-31.0); Mean Corpuscular Volume 87.3 fL (78.0-98.0); Mean Platelet Volume 7.4 fL (7.4-10.4); Monocytes 5 % (0-10); Neutrophil 81 % (42-75); Platelet Count 309 thou/uL (130-400); RBC Distribution Width 12.3 % (11.5-14.5); RBC Morphology Normal; White Blood Cell (WBC) Count 14.8 thou/uL (4.8-10.8)
--- NOTE | 2019-03-26 17:59 | RAD ---
EXAM: Lumbar spine 3 views DATE: 03/26/2019 5:12 PM INDICATION: Low back pain COMPARISON: CT abdomen pelvis dated March 22, 2019. FINDING: There is been interval development of a mild superior endplate compression fracture involvi ng the L3 vertebra. 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 Spinal alignment is similar appearing. Vascular calcifications involving abdominal aorta are similar appearing. IMPRESSION:New acute mild superior endplate compression deformity of L3 with approximately 25% loss o f height involving the mid and anterior aspects of the L3 vertebral body.
--- NOTE | 2019-03-26 18:21 | PDOC.HOSPP ---
- Subjective Encounter Date: 03/26/19 Encounter Time: 18:19 Subjective: Mr. Ortiz was seen today in follow-up of pneumonia. He says his back has been hurting every since he fell a few days ago. He says he can barely walk as a result of the pain. He admits the cough has improved however. - Objective Vital Signs & Weight: Vital Signs (12 hours) Temp Pulse Resp BP Pulse Ox 03/26/19 08:00 97.7 F 106 H 22 H 160/83 H 91 L Weight Admit Weight 171 lb 11.841 oz Weight 171 lb 11.841 oz I&O: 03/25/19 03/26/19 03/27/19 06:59 06:59 06:59 Intake Total 1000 800 840 Balance 1000 800 840 Result Diagrams: 03/26/19 08:24 03/26/19 08:24 Hospitalist ROS - Medication Medications: Active Medications Generic Name Dose Route Start Last Admin Trade Name Freq PRN Reason Stop Dose Admin Hydrocodone Bitart/Acetaminophen 1 tab 03/20/19 15:05 03/25/19 23:38 [employer] 5/325 PO 1 tab Q4H PRN Administration Moderate to Severe Pain (6-10) Albuterol/Ipratropium 3 ml 03/20/19 15:06 03/24/19 20:48 Duoneb NEB 3 ml [id number] PRN Administration SOB &/or Wheezing Benzonatate 100 mg 03/20/19 15:06 03/25/19 13:45 Tessalon PO 100 mg Q4H PRN Administration Cough Calcium Carbonate 1,000 mg 03/20/19 15:05 03/20/19 21:19 Tums PO 1,000 mg Q4H PRN Administration Heartburn or Indigestion Cefdinir 300 mg 03/25/19 21:00 03/26/19 07:54 Omnicef PO 300 mg BID RIKCY Administration Famotidine 20 mg 03/20/19 21:00 03/26/19 07:54 Pepcid PO 20 mg BID RICKY Administration Guaifenesin/Codeine Phosphate 10 ml 03/25/19 14:28 03/25/19 17:31 Robitussin Ac PO 10 ml Q6H PRN Administration Cough Heparin Sodium (Porcine) 5,000 units 03/20/19 21:00 03/26/19 15:04 Heparin SC 5,000 units TID RICKY Administration - Exam Eye: PERRL Heart: RRR, no murmur, no gallops, no rubs, normal peripheral pulses Respiratory: CTAB, no wheezes, no rales, no ronchi, normal chest expansion Gastrointestinal: soft, non-tender, non-distended, normal bowel sounds, no palpable masses, no hepatomegaly Extremities: no cyanosis, no clubbing, no edema Hosp A/P (1) Bilateral pneumonia Code(s): J18.9 - PNEUMONIA, UNSPECIFIED ORGANISM Status: Acute (2) Hypertension Code(s): I10 - ESSENTIAL (PRIMARY) HYPERTENSION Status: Chronic (3) 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
[2019-03-27] MEDS ORDERED: Tamsulosin HCl 0.4 MG CAP PO SCH (00:45)
[2019-03-27] MEDS: Cefdinir 300 MG CAP PO SCH ×2 (08:54→20:24)
[2019-03-27] MEDS: Famotidine 20 MG TAB PO SCH ×2 (08:54→20:25)
[2019-03-27] MEDS: HYDROcodone/Acetaminophen 5/325 mg Tablet PO PRN (08:54)
[2019-03-27] MEDS: Heparin 5,000 UNITS/ML VIAL SC SCH ×3 (08:56→20:25)
--- NOTE | 2019-03-27 13:16 | PQF ---
CLINICAL DOCUMENTATION IMPROVEMENT CLARIFICATION FORM: ICD-10 Updated PLEASE DO AN ADDENDUM TO THE PROGRESS NOTE WITH ANY DOCUMENTATION UPDATES OR ADDITIONS AND CARRY THROUGH TO DC SUMMARY. THANK YOU. DATE: 03/27/2019; 03/28/2019 ATTN: Dr. Freire Please exercise your independent, professional judgment in responding to the clarification form. Clinical indicators are provided on the bottom of this form for your review Please check appropriate box(s) to clarify if the following diagnosis has been ruled in or ruled out: SEPSIS [ X ] Ruled in diagnosis [ X] Continue to treat [ ] Resolved [ ] Ruled out diagnosis [ ] Cannot rule out diagnosis [ ] Other diagnosis [ ] Unable to determine In addition, please specify: Present on Admission (POA): [X ] Yes [ ] No [ ] Unable to determine For continuity of documentation, please document condition throughout progress notes and discharge summary. Thank You. CLINICAL INDICATORS - SIGNS / SYMPTOMS / LABS / RESULTS AND LOCATION IN ED RECORD 03/20: VS: BP 175/86, Pulse 112, Resp. 20, Temp. 98.2 Diagnosis: Sepsis bilateral pneumonia, Mediastinal lymphadenopathy H&P 03/20: Pt with worsening SOB, cough with productive sputum, subjective fever and chills. CTA chest on admission with bilateral pneumonia. WBC 17.0 Sepsis PN 03/24-03/26: Bilateral pneumonia RISKS: H&P 2/: 88 yo recently seen in PCP office, diagnosed with bilateral pneumonia and was started on ABX. COPD exacerbation. TREATMENT: Order 03/20-03/25: Rocephin 2 gm IV q 24 hr MAR: Order 03/25: Omnicef 300 mg po BID Thank you, Ana (This form is maintained as a part of the permanent medical record) 2014 [employer]. All Rights Reserved Ana Arredondo RN, BSN [email or web address] Office: [phone] [facility]
--- NOTE | 2019-03-27 15:20 | PDOC.HOSPP ---
- Subjective Encounter Date: 03/27/19 Encounter Time: 15:17 Subjective: Mr. Ortiz was seen today in follow-up of pneumonia and respiratory failure. He continues to complain of cough, and notes pain in his lower back. - Objective Vital Signs & Weight: Vital Signs (12 hours) Temp Pulse Resp BP Pulse Ox 03/27/19 08:00 94 L 03/27/19 07:56 97.5 F L 98 22 H 134/73 94 L Weight Admit Weight 171 lb 11.841 oz Weight 171 lb 11.841 oz I&O: 03/26/19 03/27/19 03/28/19 06:59 06:59 06:59 Intake Total 800 1240 Balance 800 1240 Result Diagrams: 03/26/19 08:24 03/26/19 08:24 Hospitalist ROS - Medication Medications: Active Medications Generic Name Dose Route Start Last Admin Trade Name Freq PRN Reason Stop Dose Admin Hydrocodone Bitart/Acetaminophen 1 tab 03/20/19 15:05 03/27/19 08:54 [place] 5/325 PO 1 tab Q4H PRN Administration Moderate to Severe Pain (6-10) Albuterol/Ipratropium 3 ml 03/20/19 15:06 03/24/19 20:48 Duoneb NEB 3 ml [id number] PRN Administration SOB &/or Wheezing Benzonatate 100 mg 03/20/19 15:06 03/25/19 13:45 Tessalon PO 100 mg Q4H PRN Administration Cough Calcium Carbonate 1,000 mg 03/20/19 15:05 03/20/19 21:19 Tums PO 1,000 mg Q4H PRN Administration Heartburn or Indigestion Cefdinir 300 mg 03/25/19 21:00 03/27/19 08:54 Omnicef PO 300 mg BID RICKY Administration Famotidine 20 mg 03/20/19 21:00 03/27/19 08:54 Pepcid PO 20 mg BID RICKY Administration Guaifenesin/Codeine Phosphate 10 ml 03/25/19 14:28 03/25/19 17:31 Robitussin Ac PO 10 ml Q6H PRN Administration Cough Heparin Sodium (Porcine) 5,000 units 03/20/19 21:00 03/27/19 08:56 Heparin SC 5,000 units TID RICKY Administration - Exam Eye: PERRL Heart: RRR, no murmur Respiratory: CTAB (+ occasional wheeze), no rales Gastrointestinal: soft, non-tender, non-distended, normal bowel sounds, no palpable masses, no hepatomegaly Extremities: no cyanosis, no clubbing, no edema Hosp A/P (1) Bilateral pneumonia Code(s): J18.9 - PNEUMONIA, UNSPECIFIED ORGANISM Status: Acute (2) Hypertension Code(s): I10 - ESSENTIAL (PRIMARY) HYPERTENSION Status: Chronic (3) 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
[2019-03-27] MEDS: guaiFENesin/Codeine Phosphate 200 mg/20 mg 10 ml UD Cup PO PRN (15:27)
[2019-03-27] MEDS: Benzonatate 100 MG CAP PO PRN (18:16)
[2019-03-27] MEDS: Calcitonin,Salmon,Synthetic 200 Units 3.7 ML PUMP R NARE SCH (18:16)
[2019-03-27] MEDS: Tamsulosin HCl 0.4 MG CAP PO SCH (20:25)
[2019-03-28] MEDS: Benzonatate 100 MG CAP PO PRN (04:09)
--- NOTE | 2019-03-28 07:21 | PDOC.HOSPP ---
- Subjective Encounter Date: 03/28/19 Encounter Time: 08:25 Subjective: Follow up with Mr. Ortiz, who is been evaluated for Pneumonia, respiratory failure and back pain. Patient states that he is having worsening cough and continued back pain. Denies fever, Chest pain, SOB, nausea, vomiting or urinary incontinence . - Objective Vital Signs & Weight: Vital Signs (12 hours) Temp Pulse Resp BP Pulse Ox 03/27/19 20:00 93 L 03/27/19 19:45 98 F 94 20 111/69 93 L Weight Admit Weight 171 lb 11.841 oz Weight 171 lb 11.841 oz I&O: 03/27/19 03/28/19 03/29/19 06:59 06:59 06:59 Intake Total 1240 1220 Balance 1240 1220 Result Diagrams: 03/26/19 08:24 03/26/19 08:24 Hospitalist ROS - Review of Systems All other systems reviewed; all pertinent +/- noted in HPI/Subj - Medication Medications: Active Medications Generic Name Dose Route Start Last Admin Trade Name Freq PRN Reason Stop Dose Admin Hydrocodone Bitart/Acetaminophen 1 tab 03/20/19 15:05 03/27/19 08:54 Melrude 5/325 PO 1 tab Q4H PRN Administration Moderate to Severe Pain (6-10) Albuterol/Ipratropium 3 ml 03/20/19 15:06 03/24/19 20:48 Duoneb NEB 3 ml [id number] PRN Administration SOB &/or Wheezing Benzonatate 100 mg 03/20/19 15:06 03/28/19 04:09 Tessalon PO 100 mg Q4H PRN Administration Cough Calcitonin [place] 1 sprays 03/27/19 16:00 03/27/19 18:16 Miacalcin R NARE 1 spr Q2DAYS RICKY Administration Calcium Carbonate 1,000 mg 03/20/19 15:05 03/20/19 21:19 Tums PO 1,000 mg Q4H PRN Administration Heartburn or Indigestion Cefdinir 300 mg 03/25/19 21:00 03/27/19 20:24 Omnicef PO 300 mg BID RICKY Administration Famotidine 20 mg 03/20/19 21:00 03/27/19 20:25 Pepcid PO 20 mg BID RICKY Administration Guaifenesin/Codeine Phosphate 10 ml 03/25/19 14:28 03/27/19 15:27 Robitussin Ac PO 10 ml Q6H PRN Administration Cough Heparin Sodium (Porcine) 5,000 units 03/20/19 21:00 03/27/19 20:25 Heparin SC 5,000 units TID RICKY Administration Tamsulosin HCl 0.4 mg 03/27/19 21:00 03/27/19 20:25 Flomax PO 0.4 mg HS RICKY Administration - Exam General Appearance: awake alert Eye: PERRL Heart: RRR, no murmur, no gallops, no rubs Respiratory: CTAB Extremities: no cyanosis, no clubbing, no edema Psychiatric: normal affect, normal behavior, A&O x 3 Hosp A/P (1) Bilateral pneumonia Code(s): J18.9 - PNEUMONIA, UNSPECIFIED ORGANISM Status: Acute (2) Hypertension Code(s): I10 - ESSENTIAL (PRIMARY) HYPERTENSION Status: Chronic (3) Pancreatic cyst Code(s): K86.2 - CYST OF PANCREAS Status: Chronic (4) Hematuria Code(s): R31.9 - HEMATURIA, UNSPECIFIED Status: Chronic (5) Acute respiratory failure with hypoxia Code(s): J96.01 - ACUTE RESPIRATORY FAILURE WITH HYPOXIA Status: Acute - Plan * Back Pain-due to a lumbar Compression fracture at L3- his muscle strength is intact- will consult Neuro-surgery to help evaluate [Neuro was consulted and back brace is set to be ordered. Low vitaman D levels are seen- administer vitamin D3] * Pneumonia- continue Omnicef [worsening cough, increasing WBC-discontinue Omnicef and begin a new abx] * Pancreatic lesion- Outpatient follow-up * Hematuria- He will need outpatient Cystoscopy [Flomax is helping with urination] * Severe deconditioning- will consult PT/OT * HTN- blood pressure is stable * Awaiting senior living * Patient seen and examined with Emil Auguste MS-2 and agree with above. He continues to have some back pain. He also continues to cough, but he feels it is better, and less productive. On exam he has a few scattered wheezes , no rales. Lab results demonstrate an elevation in his WBC count. Will repeat this in the AM and check a viral panel. Patient will likely be transitioned to [facility] tomorrow.
[2019-03-28] MEDS: Cefdinir 300 MG CAP PO SCH ×2 (08:53→21:09)
[2019-03-28] MEDS: Famotidine 20 MG TAB PO SCH ×2 (08:54→21:09)
[2019-03-28] MEDS: guaiFENesin/Codeine Phosphate 200 mg/20 mg 10 ml UD Cup PO PRN ×2 (08:59→21:10)
[2019-03-28] MEDS: Heparin 5,000 UNITS/ML VIAL SC SCH ×3 (09:00→21:09)
--- NOTE | 2019-03-28 15:04 | CON ---
DATE OF CONSULTATION: HISTORY OF PRESENT ILLNESS: Mr. Ortiz is an 88-year-old man, who is admitted to [facility] for respiratory failure, who two days ago had a fall in the bathroom here resulting in significant and sudden onset of severe back pain. Lumbar x-ray was taken at that time, which shows about a 15% height loss compression deformity at L3 with no apparent retropulsion. For this reason, Neurosurgery was consulted. At bedside, the patient is alert and oriented x4. He has full motor function and neurologic sensation in the bilateral lower extremities, chest, and trunk. He does have significant back pain, but when recumbent, seems to be much more comfortable. I discussed with Dr. Freire yesterday the likely necessity for just an LSO brace to wear when out of bed. He can sit up in a chair or at bed without this, but once he gets up to participate in out-of-bed activities he needs to place it on, most of this is for comfort. plan right now is to get him over to inpatient rehab. However, the patient expresses a great deal of resistance to this idea. Ultimately, that will be his decision and the primary team's, but from our standpoint, it is safe to be discharged at any point in terms of his fracture site, though likely the best scenario was for him to go to inpatient rehab as already suggested. Again, he expresses displeasure with this idea. Neurosurgery plans outpatient followup in roughly 3 weeks or so with x-rays at that time. Again, brace only when out of bed, can be applied when sitting, no additional intervention required. Job ID: [id number]
[2019-03-28] MEDS ORDERED: Calcitonin,Salmon,Synthetic 200 Units 3.7 ML PUMP L NARE SCH (16:00)
[2019-03-28] MEDS: Tamsulosin HCl 0.4 MG CAP PO SCH (21:10)
[2019-03-29 05:43] LABS: #Eosinphils 0.3 thou/uL (0.0-0.7); #Lymphocytes 1.8 thou/uL (1.20-3.40); #Monocytes 0.9 thou/uL (0.11-0.59); #Neutrophils 8.7 thou/uL (1.40-6.50); %Basophils 0.3 % (0.0-1.0); %Eosinophils 2.3 % (0.0-10.0); %Monocytes 7.7 % (0.0-10.0); %Neutrophils 74.7 % (42.0-75.0); Hemoglobin 14.7 g/dL (14.0-18.0); Mean Corpuscular HGB CONC 32.8 g/dL (32.0-36.0); Mean Corpuscular Hemoglobin 28.9 pg (27.0-31.0); Mean Corpuscular Volume 88.3 fL (78.0-98.0); Mean Platelet Volume 8.1 fL (7.4-10.4); Platelet Count 292 thou/uL (130-400); RBC Distribution Width 12.1 % (11.5-14.5); Red Blood Cell (RBC) Count 5.09 mill/uL (4.70-6.10); White Blood Cell (WBC) Count 11.7 thou/uL (4.8-10.8)
[2019-03-29] MEDS: guaiFENesin/Codeine Phosphate 200 mg/20 mg 10 ml UD Cup PO PRN ×2 (06:19→14:24)
--- NOTE | 2019-03-29 07:24 | PDOC.HOSPP ---
- Objective Vital Signs & Weight: Vital Signs (12 hours) Temp Pulse Resp BP Pulse Ox 03/28/19 20:00 97.6 F 92 20 131/68 93 L Weight Admit Weight 171 lb 11.841 oz Weight 171 lb 11.841 oz I&O: 03/28/19 03/29/19 03/30/19 06:59 06:59 06:59 Intake Total 1220 680 Balance 1220 680 Result Diagrams: 03/29/19 05:17 03/26/19 08:24 Hospitalist ROS - Medication Medications: Active Medications Generic Name Dose Route Start Last Admin Trade Name Freq PRN Reason Stop Dose Admin Hydrocodone Bitart/Acetaminophen 1 tab 03/20/19 15:05 03/27/19 08:54 [place] 5/325 PO 1 tab Q4H PRN Administration Moderate to Severe Pain (6-10) Albuterol/Ipratropium 3 ml 03/20/19 15:06 03/24/19 20:48 Duoneb NEB 3 ml [id number] PRN Administration SOB &/or Wheezing Benzonatate 100 mg 03/20/19 15:06 03/28/19 04:09 Tessalon PO 100 mg Q4H PRN Administration Cough Calcitonin [place] 1 sprays 03/27/19 16:00 03/27/19 18:16 Miacalcin R NARE 1 spr Q2DAYS RICKY Administration Calcitonin [place] 1 sprays 03/28/19 16:00 03/28/19 15:46 Miacalcin L NARE 1 spr Q2DAYS RICKY Administration Calcium Carbonate 1,000 mg 03/20/19 15:05 03/20/19 21:19 Tums PO 1,000 mg Q4H PRN Administration Heartburn or Indigestion Cefdinir 300 mg 03/25/19 21:00 03/28/19 21:09 Omnicef PO 300 mg BID RICKY Administration Famotidine 20 mg 03/20/19 21:00 03/28/19 21:09 Pepcid PO 20 mg BID RICKY Administration Guaifenesin/Codeine Phosphate 10 ml 03/25/19 14:28 03/29/19 06:19 Robitussin Ac PO 10 ml Q6H PRN Administration Cough Heparin Sodium (Porcine) 5,000 units 03/20/19 21:00 03/28/19 21:09 Heparin SC 5,000 units TID RICKY Administration Tamsulosin HCl 0.4 mg 03/27/19 21:00 03/28/19 21:10 Flomax PO 0.4 mg HS RICKY Administration Hosp A/P (1) Bilateral pneumonia Code(s): J18.9 - PNEUMONIA, UNSPECIFIED ORGANISM Status: Acute (2) Hypertension Code(s): I10 - ESSENTIAL (PRIMARY) HYPERTENSION Status: Chronic (3) Pancreatic cyst Code(s): K86.2 - CYST OF PANCREAS Status: Chronic (4) Hematuria Code(s): R31.9 - HEMATURIA, UNSPECIFIED Status: Chronic (5) Acute respiratory failure with hypoxia Code(s): J96.01 - ACUTE RESPIRATORY FAILURE WITH HYPOXIA Status: Acute - Plan * Back Pain-due to a lumbar Compression fracture at L3- his muscle strength is intact- will consult Neuro-surgery to help evaluate [Neuro was consulted and back brace is set to be ordered. Low vitaman D levels are seen- administer vitamin D3] * Pneumonia- continue Omnicef [worsening cough, increasing WBC-discontinue Omnicef and begin a new abx] * Pancreatic lesion- Outpatient follow-up * Hematuria- He will need outpatient Cystoscopy [Flomax is helping with urination] * Severe deconditioning- will consult PT/OT * HTN- blood pressure is stable * Awaiting [facility] * Patient seen and examined with Emil Auguste MS-2 and agree with above. He continues to have some back pain. He also continues to cough, but he feels it is better, and less productive. On exam he has a few scattered wheezes , no rales. Lab results demonstrate an elevation in his WBC count. Will repeat this in the AM and check a viral panel. Patient will likely be transitioned to [facility] tomorrow.
[2019-03-29 07:56] VITALS: BP 116/73; TEMP 98.1
[2019-03-29] MEDS: Heparin 5,000 UNITS/ML VIAL SC SCH ×2 (09:34→14:25)
[2019-03-29] MEDS: Cefdinir 300 MG CAP PO SCH (09:34)
[2019-03-29] MEDS: Famotidine 20 MG TAB PO SCH (09:34)
[2019-03-29] MEDS: Calcitonin,Salmon,Synthetic 200 Units 3.7 ML PUMP R NARE SCH (14:25)
--- NOTE | 2019-03-30 02:15 | DIS ---
DATE OF ADMISSION: 03/20/2019 DATE OF DISCHARGE: 03/29/2019 DISCHARGE DISPOSITION: [facility] DISCHARGE DIAGNOSES: 1. Acute on chronic respiratory failure due to pneumonia. 2. Chronic obstructive pulmonary disease with exacerbation. 3. Hematuria. 4. Lesion on the pancreas. 5. BPH. DISCHARGE MEDICATIONS: 1. Flomax 0.4 mg at bedtime. 2. Omnicef 300 mg twice a day. 3. Tessalon [place] 100 mg q.4 as needed. 4. Tylenol 650 mg q.4 as needed. 5. Multivitamin and folic acid one tablet daily. IMAGING STUDIES: During the hospital stay, the patient had a CT angiogram of the chest demonstrating patchy scattered alveolar, nodular, parenchymal changes in the right upper lobe and in the middle lobe and lingula. Evidence for bilateral pneumonia as well as three-vessel calcific disease. The patient had a renal ultrasound showing bilateral renal cysts. The patient had a CT scan of the abdomen and pelvis. There is no evidence of any urinary tract calculi or obstruction. There is renal cyst. There was prostate enlargement and there was an indeterminate 5 mm low-density lesion in the body of the pancreas and a 7 mm indeterminate lesion in the upper lobe of the liver. The patient had an x-ray of the lumbar spine showing a new acute L3 compression fracture. CODE STATUS: Full code. ALLERGIES: TO PENICILLIN. HOSPITAL COURSE: Mr. Ortiz is a pleasant 88-year-old gentleman, who presented to the emergency room with cough and shortness of breath. He was evaluated in the ER, had a CT angiogram of the chest, which was consistent with bilateral pneumonia. He was admitted to the hospital and started on IV antibiotics. He also mentioned having difficulty with some hematuria. For this reason, a renal ultrasound was done, which showed bilateral renal cyst. This was followed up with a CT scan of the abdomen and pelvis. This did not show any significant renal lesions. However, it showed a low-density lesion in the pancreas. The patient was seen by Urology with regard to the hematuria and it was felt that the patient could have an outpatient cystoscopy done and this did not need inpatient evaluation at this time. He was also evaluated by Gastroenterology. He was also told that the pancreas lesion could be further worked up in the outpatient setting with either endoscopic ultrasound or repeat CT scan in 3 to 6 months. The patient unfortunately suffered a fall during his hospital stay, trying to go to the bathroom and unfortunately suffered a L3 compression fracture. He was evaluated by Neurosurgery and felt that an LSO brace would be sufficient and he was then subsequently transferred to the [facility] on 03/29/2019. Job ID: [id number]
--- NOTE | 2019-04-02 04:19 | PQF ---
JEAN CLAUDE CHACON TONI MD [id number] CLINICAL DOCUMENTATION CLARIFICATION FORM: POST DISCHARGE Addendum to original discharge summary date: ____ Late entry note date: __ DATE:04/02/2019 ATTN: Yunier Otoole Please exercise your independent, professional judgment in responding to the clarification form. Clinical indicators are provided on the bottom of this form for your review Please check appropriate box(s): [X ] Aspiration Pneumonia [ ] Empirically treating Gram Negative Pneumonia [ ] Empirically treating Anaerobic Pneumonia [ ] Pneumonia secondary to (specify organism / underlying disease) [ ] Simple Pneumonia (community acquired - nosocomial) [ ] Pneumonia of unknown etiology [ ] Other diagnosis [ ] Unable to determine In addition, please specify: Present on Admission (POA): [ X] Yes [ ] No [ ] Unable to determine For continuity of documentation, please document condition throughout progress notes and discharge summary. Thank You. CLINICAL INDICATORS - SIGNS / SYMPTOMS / LABS Vital signs 2/ Temp 98.5, Pulse 101, Resp rate 20. O2 sat 95%, BP 154/70 Chest Xray p1 2 Slightly worsening bilateral alveolar opacity changes concerning for pneumonia H&P p1 2/4 Dr Lawton Pt with worsening shortness of breath, cough with productive sputum and subjective fever and chills H&P p1 2/4 Dr Lawton CTA of chest om admission with bilateral pneumonia H&P p4 2/4 Dr Lawton remote history of 3PPD for 20 years, though not formally diagnosed with COPD or emphysema in the past PN p1 2 Dr Chacko Pneumonia suspect aspiration RISK FACTORS H&P p1 2/4 88 year old Male H&P p1 2/4 Bilateral Pneumonia H&P p1 2/4 Former smoker H&P p3 03/20 COPD exacerbation H&P p3 03/20 Sepsis Hospitalist p4 03/24 Acute respiratory failure TREATMENTS: APR 15 IV Levaquin 750mg APR 15 IVF 1L APR 15 IV Ceftriaxone 2gm APR 15 IV Cefepime 2gm APR 15 IV Azithromycin 500mg APR 15 IV steroids APR 15 DuoNeb 3ml neb APR 15 Omnicef 300mg po Nasal Swab and blood cultured ordered 03/20 Chest xray ordered 03/20 (This form is maintained as a part of the permanent medical record) 2014 [email or web address], [employer]. All Rights Reserved [email or web address]
--- NOTE | 2019-04-05 15:35 | EKG ---
Test Reason : Blood Pressure : / mmHG Vent. Rate : 106 BPM Atrial Rate : 106 BPM P-R Int : 148 ms QRS Dur : 076 ms QT Int : 334 ms P-R-T Axes : 038 -09 041 degrees QTc Int : 443 ms Sinus tachycardia with Premature supraventricular complexes Nonspecific ST abnormality Abnormal ECG Confirmed by VERONICA GILLESPIE, CRISTINA ([id number]), copy editor MICHAEL KEYS ([id number]) on 04/05/2019 3:34:54 PM Referred By: Confirmed By:CRISTINA MARTIN MD
== END 2019-03-29 15:43 | DRG 871 ==
LOC: ERS 12:10 → T4-A 15:17
PROVIDERS: ADMIT Internal Medicine; ATTEND Internal Medicine
DX: A41.9 Sepsis, unspecified organism (principal); J96.21 Acute and chronic respiratory failure with hypoxia; S32.039A Unspecified fracture of third lumbar vertebra, initial encounter for closed fracture; J69.0 Pneumonitis due to inhalation of food and vomit; J44.1 Chronic obstructive pulmonary disease with (acute) exacerbation; K86.89 Other specified diseases of pancreas; N40.0 Benign prostatic hyperplasia without lower urinary tract symptoms; N28.1 Cyst of kidney, acquired; W18.30XA Fall on same level, unspecified, initial encounter; Y92.231 Patient bathroom in hospital as the place of occurrence of the external cause; I10 Essential (primary) hypertension; R31.0 Gross hematuria; R16.0 Hepatomegaly, not elsewhere classified; Z87.891 Personal history of nicotine dependence; Z88.0 Allergy status to penicillin; Z79.899 Other long term (current) drug therapy
CPT/HCPCS: 36415; 71045; 71046; 71275; 72100; 74178; 74230; 76770; 80048; 80053; 81003; 81015; 82306; 82550; 83605; 83630; 83690; 83735; 83880; 84153; 84484; 85025; 85379; 87040; 87045; 87046; 87324; 87328; 87329; 87427; 87449; 87633; 87804; 93005; 94640; 96361; 96365; 96366; 96367; 99214; G0463; J0456; J0692; J0696; J1644; J1956; J2920; J3490; J7050; J7620; Q9967

== ENCOUNTER 2019-04-16 10:07 | Outpatient (CLI) | payer MEDICARE ==
--- NOTE | 2019-04-16 10:53 | RAD ---
PA AND LATERAL VIEWS CHEST: Date: 04/16/2019 HISTORY: Pneumonia follow-up. FINDINGS: Comparison made with exam of 03/19/2019. The heart size is normal. Parenchymal changes in the right upper lobe are again seen. No pneumothorac es or pleural effusions are identified. IMPRESSION: Stable exam. POS: OFF
== END 2019-04-16 10:08 | disposition home or self-care (01) ==
LOC: BICRAD 10:07
PROVIDERS: ATTEND Family Medicine
DX: J18.9 Pneumonia, unspecified organism (principal)
CPT/HCPCS: 71046

== ENCOUNTER 2019-05-16 08:34 | Outpatient (CLI) | payer MEDICARE ==
--- NOTE | 2019-05-16 09:04 | RAD ---
TWO VIEWS OF THE CHEST: INDICATION: History of pneumonia. COMPARISON: Prior chest radiograph dated 04/16/2019, 03/20/2019, and 02/26/2017. FINDINGS: No airspace consolidation is evident. The interstitial thickening involving the right upper lobe is less prominent. There are some residual increased interstitial markings in the right upper lobe that are stable to a comparison from 2018 likely reflecting underlying scar. No pleural effusion is evid ent. Heart size is normal. No acute osseous abnormality is noted. IMPRESSION: 1. No acute cardiopulmonary abnormality. Resolution of the bilateral pneumonias. 2. Some mild residual scar in the right upper lobe, stable since 2018. POS: BH
--- NOTE | 2019-05-16 11:01 | RAD ---
LUMBAR SPINE 2 VIEWS: Date: 05/16/2019 HISTORY: Follow-up L3 compression fracture. COMPARISON: 03/26/2019. FINDINGS: There appears to be some progressive vertical height loss of the L3 vertebral body with some progress valentín retropulsion superiorly. No significant malalignment. Generalized spondylosis. IMPRESSION: Evidence for a burst-type fracture of L3 vertebral body with what appears to be some progressive vert ical height loss when compared to the prior study, with possibly somewhat more progressive retropulsi on superiorly. Generalized spondylosis. Continue short-term follow-up. JET Garcia
== END 2019-05-16 08:35 | disposition home or self-care (01) ==
LOC: BICRAD 08:34
PROVIDERS: ATTEND Internal Medicine
DX: R05 Cough (principal); S32.030D Wedge compression fracture of third lumbar vertebra, subsequent encounter for fracture with routine healing; J98.4 Other disorders of lung
CPT/HCPCS: 71046; 72100

== ENCOUNTER 2019-06-15 11:22 | Observation (INO) | payer MEDICARE ==
[2019-06-15] MEDS ORDERED: Ondansetron PF 4 MG/2 ML Vial ONE (11:52)
[2019-06-15 11:55] LABS: #Basophils 0.1 thou/uL (0.0-0.2); #Eosinphils 0.3 thou/uL (0.0-0.7); #Lymphocytes 3.7 thou/uL (1.20-3.40); #Monocytes 0.8 thou/uL (0.11-0.59); #Neutrophils 7.9 thou/uL (1.40-6.50); %Basophils 0.9 % (0.0-1.0); %Eosinophils 2.1 % (0.0-10.0); %Lymphocytes 28.8 % (21.0-51.0); %Monocytes 6.2 % (0.0-10.0); %Neutrophils 62.1 % (42.0-75.0); Hemoglobin 14.9 g/dL (14.0-18.0); Mean Corpuscular HGB CONC 32.9 g/dL (32.0-36.0); Mean Corpuscular Hemoglobin 29.6 pg (27.0-31.0); Mean Corpuscular Volume 89.9 fL (78.0-98.0); Mean Platelet Volume 6.9 fL (7.4-10.4); Platelet Count 271 thou/uL (130-400); RBC Distribution Width 14.1 % (11.5-14.5); Red Blood Cell (RBC) Count 5.04 mill/uL (4.70-6.10); White Blood Cell (WBC) Count 12.7 thou/uL (4.8-10.8)
[2019-06-15 12:14] LABS: ALT (SGPT) 13 U/L (8-55); AST (SGOT) 13 U/L (5-34); Albumin 4.1 g/dL (3.4-4.8); Alkaline Phosphatase 69 U/L (40-110); Anion Gap 15 mmol/L (10-20); BUN (Urea Nitrogen) 21 mg/dL (8.4-25.7); Bilirubin, Total 0.6 mg/dL (0.2-1.2); Calc. Creatinine Clearance 0 mL/min (70-130); Calcium 9.2 mg/dL (7.8-10.44); Carbon Dioxide 24 mmol/L (23-31); Chloride 102 mmol/L (98-107); Estimated GFR-MDRD Greater than 90; Globulin 2.8 g/dL (2.4-3.5); Glucose 144 mg/dL (83-110); Potassium 3.5 mmol/L (3.5-5.1); Protein, Total 6.9 g/dL (5.8-8.1); Sodium 137 mmol/L (136-145)
[2019-06-15 14:27] LABS: Bacteria/HPF None Seen HPF (None Seen); Bilirubin Negative (Negative); Blood, Urine 1+ (Negative); Clarity Clear (Clear); Glucose, Urine (Dipstick) Normal (Negative); Leukocyte Negative Leu/uL (Negative); Nitrite Negative (Negative); Protein, Urine (Dipstick) 70 mg/dL (Neg-Trace); Squamous Epithelial None Seen HPF (0-3); Urobilinogen Normal mg/dL (Less than 2); WBC/HPF 0-3 HPF (0-3)
--- NOTE | 2019-06-15 15:31 | CT ---
CT HEAD WITHOUT CONTRAST: 06/15/19 INDICATION: Dizziness and vertigo. Fall last evening. No comparison. FINDINGS: Moderate cortical volume loss consistent with age. Ventricles have normal size and position. There is no evidence of intracranial mass, hemorrhage or infarct. Mild chronic ischemic white matter change. The paranasal sinuses and mastoids are clear. IMPRESSION: No acute abnormality. POS: AGW
--- NOTE | 2019-06-15 15:52 | CT ---
CT CERVICAL SPINE: 06/15/19 INDICATIONS: Fall at home. COMPARISON: Comparison made with CT cervical spine dated 10/22/15. Severe degenerative changes of the cervical spine again noted and appear stable from the prior exam. Anterior wedging at C3. Compression of C4. Partial fusion of C5-6. Severe degenerative disc changes a t all levels with severe posterior spondylosis. Posterolisthesis at C4-5 is again noted and was descr ibed previously. No evidence of acute fracture. Severe cord compression at C4-5 is again noted and was described previously. Severe cord compression due to spondylosis at C6-7 is again noted and was described previously. Foraminal stenosis at multipl e levels. Again noted. IMPRESSION: Severe degenerative changes of the cervical spine as described above. These findings appear stable fr om 2016. Severe cord compression noted at C4-5 and C6-7, stable in appearance. POS: JAYANT
[2019-06-15] MEDS ORDERED: Acetaminophen 325 MG TAB PO PRN (15:57)
[2019-06-15] MEDS ORDERED: Guaifenesin DM 100-10/5 ML UDCUP PO PRN (15:57)
[2019-06-15] MEDS ORDERED: Bisacodyl 10 MG SUPP PR PRN (15:57)
[2019-06-15] MEDS ORDERED: HYDROcodone/Acetaminophen 5/325 mg Tablet PO PRN (15:57)
[2019-06-15] MEDS ORDERED: Nitroglycerin 0.4 MG TAB (25 Tab Bottle) PO PRN (15:57)
[2019-06-15] MEDS ORDERED: Senokot S 8.6-50 MG TAB PO PRN (15:57)
[2019-06-15] MEDS ORDERED: Calcium Carbonate 500 MG ChewTAB PO PRN (15:57)
[2019-06-15] MEDS ORDERED: Ondansetron PF 4 MG/2 ML Vial IVP PRN (15:57)
--- NOTE | 2019-06-15 16:18 | RAD ---
ONE VIEW CHEST: 06/15/19 COMPARISON: 03/20/19. HISTORY: Patient fell yesterday. Dizziness. FINDINGS: Normal cardiac silhouette. Pulmonary vessels and hilum are normal. Costophrenic angles are clear. Jerod g volumes are diminished, likely due to a poor inspiratory effort. Chronic lung parenchymal changes, without focal masses or consolidation. Previously noted lung parenchymal opacities are no longer pres ent. No pneumothorax or acute osseous abnormalities. IMPRESSION: Chronic lung parenchymal changes. No acute cardiopulmonary process. POS: PPP
--- NOTE | 2019-06-15 16:47 | HP ---
REASON FOR ADMISSION: Dizziness. HISTORY OF PRESENTING ILLNESS: The patient gives history of finishing up urination and was about to turn, he started feeling the room spinning. This happened on Tuesday. Ever since, the patient has had multiple episodes of dizziness. On Tuesday, in the restroom, he was trying to reach his walker but, he apparently fell, but did not have any injuries. He fell last night as well, but has not had any injuries, this fall was related to dizziness again. No complaints of fever, cough or expectoration. No complaints of urinary frequency or urgency. His last stress test was more than 20 years back. He has not had any stroke in the past. The patient states he has been to hospitals only 3 times and all in the last 6 months. He normally ambulates with a walker. He has not been exposed to coronavirus and he has stayed indoors for the most part, and when he goes out, he wears a mask. PAST MEDICAL AND SURGICAL HISTORY: He has had thoracolumbar disk disease and has a steroid shot scheduled for the , COPD, tonsillectomy, cataract surgery, was hospitalized here in March for pneumonia. CURRENT MEDICATIONS: None. ALLERGIES: ALLERGIC TO PENICILLIN. PERSONAL HISTORY: Quit smoking 25 years back; prior to that, smoked heavily 3 packs a day for nearly 30 to 40 years. Does not abuse alcohol or drugs. He lives alone. FAMILY HISTORY: Both parents in their 70s from coronary artery disease. A younger brother was on dialysis and also of cancer in his 80s. CODE STATUS: Full. Power of family law attorney is his daughter, Ms. Lucia Napoles. He has a son, who lives in [place]. REVIEW OF SYSTEMS: CONSTITUTIONAL: Negative for weight loss or gain, ability to conduct usual activities. SKIN: Negative for rash, itching. EYES: Negative for double vision, pain. ENT/MOUTH: Negative for nose bleeding, neck stiffness, pain, tenderness. CARDIOVASCULAR: Negative for palpitations, dyspnea on exertion, orthopnea. RESPIRATORY: Negative for shortness of breath, wheezing, cough, hemoptysis, fever or night sweats. GASTROINTESTINAL: Negative for poor appetite, abdominal pain, heartburn, nausea , vomiting, constipation, or diarrhea. GENITOURINARY: Negative for urgency, frequency, dysuria, nocturia. MUSCULOSKELETAL: Negative for pain, swelling. NEUROLOGIC/PSYCHIATRIC: Negative for anxiety, depression. ALLERGY/IMMUNOLOGIC: Negative for skin rash, bleeding tendency. PHYSICAL EXAMINATION: GENERAL: The patient is an 88-year-old male, who is currently not in any acute distress. VITAL SIGNS: Blood pressure 114/66, pulse 78 per minute, respiratory rate 20 per minute, temperature 98 degrees Fahrenheit, and saturating 96% on room air. NECK: Supple. No elevated JVD. HEENT: Eyes; extraocular muscles intact. Pupils reacting to light. Oral cavity, mucous membranes are dry. No exudates or congestion. CARDIOVASCULAR: S1 and S2 heard. Regular rhythm. RESPIRATORY: Air entry 1+ bilateral, scattered rhonchi, plus no wheezes. ABDOMEN: Soft. Bowel sounds heard. No tenderness, rigidity or guarding. EXTREMITIES: Cold to touch. Peripheral pulses are barely palpable. No ischemic ulcers or gangrene. No calf tenderness. CENTRAL NERVOUS SYSTEM: No gross focal motor deficits noted. The patient's strength is 5/5 in all 4 extremities. Babinski's is downgoing. Reflexes are 2+ . Gait was not tested. Cranial nerves are grossly intact. PSYCHIATRIC: No obvious hallucinations or delusions. The patient is alert, awake, and oriented well. DIAGNOSTIC DATA: CT brain without contrast done showed no acute infarct or bleed. CT cervical spine shows degenerative changes. There is severe cord compression at C4-C5 and C6-C7. LABORATORY DATA: UA is negative for any infection. Electrolytes stable. BUN 21, creatinine 0.7, and serum glucose 144. Liver enzymes within normal limits. Troponin x1 is negative. Albumin is 4.1. TSH 0.61. White count is 12, H and H of 14 and 45, platelet count 271, MCV is 89 with 62% neutrophils. CLINICAL IMPRESSION AND PLAN: The patient will be placed under observation on stroke unit for dizziness to rule out posterior circulation cerebrovascular accident. We will obtain an MRI without contrast and an echo with 2D Doppler for LV function. We will also obtain a nuclear stress test in view of the patient's risk factors. The patient is functional and is oriented well with no cognitive dysfunction as such. We will obtain orthostatic blood pressures. He will be on full-dose aspirin. We will also add Lipitor and DuoNeb q.6 hourly p.r.n. Gentle hydration with normal saline at 60 mL/hr and Flomax 0.4 mg p.o. at bedtime, which he was discharged on when he was here in March. We will continue to closely monitor him on stroke unit. Job ID: [id number] MTDD
[2019-06-15 18:14] VITALS: BMI 22.9
[2019-06-15] MEDS: Atorvastatin Calcium 40 MG TAB PO SCH (20:13)
[2019-06-15] MEDS: Sodium Chloride 0.9% 1,000 ML IV SCH (20:14)
[2019-06-15] MEDS: Tamsulosin HCl 0.4 MG CAP PO SCH (20:34)
[2019-06-16 02:21] LABS: #Basophils 0.1 thou/uL (0.0-0.2); #Eosinphils 0.2 thou/uL (0.0-0.7); #Lymphocytes 2.5 thou/uL (1.20-3.40); #Monocytes 0.7 thou/uL (0.11-0.59); #Neutrophils 8.1 thou/uL (1.40-6.50); %Basophils 0.9 % (0.0-1.0); %Eosinophils 1.6 % (0.0-10.0); %Lymphocytes 21.4 % (21.0-51.0); %Monocytes 5.9 % (0.0-10.0); %Neutrophils 70.2 % (42.0-75.0); Hemoglobin 14.1 g/dL (14.0-18.0); Mean Corpuscular HGB CONC 33.2 g/dL (32.0-36.0); Mean Corpuscular Hemoglobin 29.9 pg (27.0-31.0); Mean Corpuscular Volume 90.2 fL (78.0-98.0); Mean Platelet Volume 7.1 fL (7.4-10.4); Platelet Count 238 thou/uL (130-400); RBC Distribution Width 14.1 % (11.5-14.5); Red Blood Cell (RBC) Count 4.73 mill/uL (4.70-6.10); White Blood Cell (WBC) Count 11.5 thou/uL (4.8-10.8)
[2019-06-16 02:48] LABS: Anion Gap 12 mmol/L (10-20); BUN (Urea Nitrogen) 20 mg/dL (8.4-25.7); Calc. Creatinine Clearance 70 mL/min (70-130); Calcium 9.3 mg/dL (7.8-10.44); Carbon Dioxide 27 mmol/L (23-31); Cardiac Risk 3.8 (Less than 4.5); Chloride 103 mmol/L (98-107); Cholesterol 207 mg/dl (< 200 Desired); Estimated GFR-MDRD Greater than 90; Glucose 132 mg/dL (83-110); HDL Cholesterol 55 mg/dL (>60 Neg Risk); LDL Cholesterol, Calculated 122 mg/dL; Potassium 4.3 mmol/L (3.5-5.1); Sodium 138 mmol/L (136-145); Triglycerides 151 mg/dL (Less than 150)
[2019-06-16] MEDS ORDERED: Aspirin 325 mg Enteric Coated Tablet PO SCH (09:00)
--- NOTE | 2019-06-16 11:15 | MRI ---
MRI BRAIN NONCONTRAST: DATE: 06/16/2019 HISTORY: 88-year-old female with dizziness, TIA, status post fall. FINDINGS: There is no obstructive hydrocephalus. There is no midline shift or any other evidence of mass effect . There is no extra-axial fluid collection. There are T2-hyperintensities in the cerebral white matter consistent with mild-moderate chronic ischemic white matter changes due to microvascular ather osclerosis. There is diffuse brain parenchymal volume loss. There is no evidence of recent hemorrhage or restricted diffusion. Cervical spondylosis with high-grade central spinal canal stenosi s at C2-C3 and C3-4. Deviation of upper cervical spinal cord by the spondylosis. IMPRESSION: 1) Involutional changes and mild-moderate chronic ischemic white matter changes. 2) otherwise negative 3) cervical spondylosis with high-grade central spinal canal stenosis, incompletely imaged.
[2019-06-16] MEDS: Multivitamin W/ Minerals 1 TAB PO SCH (11:35)
[2019-06-16] MEDS: Enoxaparin Sodium 40 MG/0.4 ML SYRINGE SC SCH (11:35)
[2019-06-16] MEDS: Folic Acid 1 MG TAB PO SCH (11:35)
[2019-06-16] MEDS: Cyanocobalamin (Vitamin B-12) 1,000 MCG TAB PO SCH (11:35)
[2019-06-16] MEDS: Sodium Chloride 0.9% 1,000 ML IV SCH (11:36)
--- NOTE | 2019-06-16 13:14 | PDOC.HOSPP ---
- Subjective Encounter Date: 06/16/19 Encounter Time: 12:30 Subjective: Patient seen and examined for Near syncope. No new dizziness. Feels better. No new complaints. No overnight events - Objective Vital Signs & Weight: Vital Signs (12 hours) Temp Pulse Pulse Pulse Resp BP BP 06/16/19 11:04 06/16/19 11:00 97.2 F L 90 16 06/16/19 10:51 94 157/88 H 06/16/19 10:50 94 93 157/88 H 146/79 H 06/16/19 07:36 97.6 F 80 16 06/16/19 04:13 97.5 F L 81 20 BP BP Pulse Ox 06/16/19 11:04 97 06/16/19 11:00 146/79 H 97 06/16/19 10:51 06/16/19 10:50 06/16/19 07:36 157/77 H 97 06/16/19 04:13 142/80 H 96 Weight Weight 160 lb I&O: 06/15/19 06/16/19 06/17/19 06:59 06:59 06:59 Intake Total 769 Output Total 450 Balance 319 Result Diagrams: 06/16/19 02:04 06/16/19 02:04 Radiology Reviewed by me: Yes (MRI brain - no CVA) EKG Reviewed by me: Yes (Tele SR) Hospitalist ROS - Review of Systems Respiratory: denies: cough, dry, shortness of breath, hemoptysis, SOB with excertion, pleuritic pain, sputum, wheezing, other Cardiovascular: denies: chest pain, palpitations, orthopnea, paroxysmal noc. dyspnea, edema, light headedness, other - Medication Medications: Active Medications Generic Name Dose Route Start Last Admin Trade Name Freq PRN Reason Stop Dose Admin Hydrocodone Bitart/Acetaminophen 1 tab 06/15/19 15:57 06/15/19 21:11 [place] 5/325 PO 1 tab Q4H PRN Administration Moderate Pain (4-6) Atorvastatin Calcium 40 mg 06/15/19 21:00 06/15/19 20:13 Lipitor PO 40 mg HS RICKY Administration Cyanocobalamin 1,000 mcg 06/16/19 09:00 06/16/19 11:35 Vitamin B-12 PO 1,000 mcg DAILY RICKY Administration Enoxaparin Sodium 40 mg 06/16/19 09:00 06/16/19 11:35 Lovenox SC 40 mg 0900 RICKY Administration Folic Acid 1 mg 06/16/19 09:00 06/16/19 11:35 Folvite PO 1 mg DAILY RICKY Administration Iron/Minerals/Multivitamins 1 tab 06/16/19 09:00 06/16/19 11:35 Theragran M PO 1 tab DAILY RICKY Administration Tamsulosin HCl 0.4 mg 06/15/19 21:00 06/15/19 20:34 Flomax PO Not Given HS RICKY - Exam General Appearance: NAD Heart: RRR, no gallops, no rubs, normal peripheral pulses Respiratory: no wheezes, no rales, no ronchi, normal chest expansion Gastrointestinal: soft, non-tender, non-distended, normal bowel sounds Extremities: no cyanosis, no clubbing Neurological: no new deficit Psychiatric: normal affect, A&O x 3 Hosp A/P - Plan DVT proph w/SCDs Near syncope/Dizziness COPD Former smoker 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
--- NOTE | 2019-06-16 16:09 | CON ---
DATE OF CONSULTATION: 06/16/2019 CONSULTING PHYSICIAN: Hospitalist Service. IMPRESSION: Probable peripheral vertigo secondary to benign positional vertigo. PLAN: MRI of the brain. HISTORY OF PRESENT ILLNESS: Mr. Ortiz is an 88-year-old gentleman who has been remarkably healthy. He took a fall about 2 months ago and injured his back. He is having some radicular pain in the right leg over this interval of time. He was at home when he got up and developed acute dizziness, not associated with any lateralized weakness or numbness. He had no headache or double vision. He called the ambulance due to the concern of the acute onset. He had some vomiting in the ambulance, but otherwise reports that the symptoms subsequently subsided. They recur when he rolls over to the left side. He denies any tinnitus or hearing loss. He has never had this in the past. He had a CT of the brain done, which was unremarkable. His lab work was unremarkable. His EKG shows a sinus rhythm. ALLERGIES: PENICILLIN. SOCIAL HISTORY: No tobacco or alcohol. FAMILY HISTORY: Noncontributory. MEDICATION LIST: Reviewed. REVIEW OF SYSTEMS: Ten-system review of systems is otherwise negative. PHYSICAL EXAMINATION: VITAL SIGNS: Vital signs have been stable. He is afebrile. HEENT: Pupils are equal. Conjunctivae clear. No nystagmus was noted. Oropharynx is clear. Cranium, normocephalic and atraumatic. NECK: Supple. No lymphadenopathy. EXTREMITIES: No cyanosis, clubbing, or edema. NEUROLOGIC: He is alert and appropriate. His speech is fluent and clear. Cranial nerves 2 through 12 are intact. Motor exam showed good strength bilaterally. There was no fix or drift. No tremor or dysmetria is present. Sensation is intact to touch. Gait was not tested. IMAGING STUDIES: CT of the brain was unremarkable. SUMMARY: He is an elderly gentleman with acute vertigo and no other symptoms suggestive of a central etiology. I suspect that this is benign positional vertigo. Job ID: [id number]
[2019-06-16] MEDS: Gabapentin 300 MG CAP PO SCH ×2 (16:11→20:21)
[2019-06-16] MEDS: Atorvastatin Calcium 40 MG TAB PO SCH (20:21)
[2019-06-16] MEDS: Tamsulosin HCl 0.4 MG CAP PO SCH (20:23)
--- NOTE | 2019-06-16 20:31 | PDOC.EVN ---
Event Note - Event Note Event Note: Notified by RN, patient with 17 beats of PAT. BP stable. patient asymptomatic. Will obtain BMP and Mg+. Continue to monitor.
[2019-06-16 21:21] LABS: Anion Gap 11 mmol/L (10-20); BUN (Urea Nitrogen) 16 mg/dL (8.4-25.7); Calc. Creatinine Clearance 68 mL/min (70-130); Carbon Dioxide 29 mmol/L (23-31); Chloride 102 mmol/L (98-107); Estimated GFR-MDRD Greater than 90; Glucose 166 mg/dL (83-110); Magnesium 1.9 mg/dL (1.6-2.6); Potassium 3.7 mmol/L (3.5-5.1); Sodium 138 mmol/L (136-145)
--- NOTE | 2019-06-17 07:22 | PDOC.HOSPP ---
- Subjective Encounter Date: 06/17/19 Encounter Time: 06:55 Subjective: Patient seen and examined for near syncope. Had another episode last night. Also has PAT on tele monitor per RN. No CP/palpitations. No new complaints. No overnight events - Objective Vital Signs & Weight: Vital Signs (12 hours) Temp Pulse Resp BP Pulse Ox 06/17/19 04:11 97.5 F L 86 16 160/62 H 93 L 06/16/19 23:55 97.7 F 74 20 138/76 95 06/16/19 20:00 97.3 F L 81 18 147/81 H 94 L Weight Weight 160 lb I&O: 06/16/19 06/17/19 06/18/19 06:59 06:59 06:59 Intake Total 769 770 Output Total 450 1200 Balance 319 -430 Result Diagrams: 06/16/19 02:04 06/16/19 20:45 EKG Reviewed by me: Yes (Tele SR/PAT earlier) Hospitalist ROS - Review of Systems Respiratory: denies: cough, dry, shortness of breath, hemoptysis, SOB with excertion, pleuritic pain, sputum, wheezing, other Cardiovascular: denies: chest pain, palpitations, orthopnea, paroxysmal noc. dyspnea, edema, light headedness, other Gastrointestinal: denies: nausea, vomiting, abdominal pain, diarrhea, constipation, melena, hematochezia, other - Medication Medications: Active Medications Generic Name Dose Route Start Last Admin Trade Name Freq PRN Reason Stop Dose Admin Hydrocodone Bitart/Acetaminophen 1 tab 06/15/19 15:57 06/15/19 21:11 [place] 5/325 PO 1 tab Q4H PRN Administration Moderate Pain (4-6) Atorvastatin Calcium 40 mg 06/15/19 21:00 06/16/19 20:21 Lipitor PO 40 mg HS RICKY Administration Cyanocobalamin 1,000 mcg 06/16/19 09:00 06/16/19 11:35 Vitamin B-12 PO 1,000 mcg DAILY RICKY Administration Enoxaparin Sodium 40 mg 06/16/19 09:00 06/16/19 11:35 Lovenox SC 40 mg 0900 RICKY Administration Folic Acid 1 mg 06/16/19 09:00 06/16/19 11:35 Folvite PO 1 mg DAILY RICKY Administration Gabapentin 300 mg 06/16/19 15:00 06/16/19 20:21 Neurontin PO 300 mg TID RICKY Administration Iron/Minerals/Multivitamins 1 tab 06/16/19 09:00 06/16/19 11:35 Theragran M PO 1 tab DAILY RICKY Administration Tamsulosin HCl 0.4 mg 06/15/19 21:00 06/16/19 20:23 Flomax PO Not Given HS RICKY - Exam General Appearance: NAD Neck: supple, no JVD Heart: RRR, no gallops Respiratory: no wheezes, no ronchi Gastrointestinal: non-tender, non-distended, normal bowel sounds Extremities: no cyanosis, no clubbing, no edema Neurological: no new deficit Psychiatric: normal affect, A&O x 3 Hosp A/P - Plan DVT proph w/lovenox, DVT proph w/SCDs Near syncope/Dizziness - ?etio Narrow complex tachycardia COPD Former smoker 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
[2019-06-17] MEDS ORDERED: Aspirin 81 mg Enteric Coated Tablet PO SCH (09:00)
[2019-06-17] MEDS: Cyanocobalamin (Vitamin B-12) 1,000 MCG TAB PO SCH (09:21)
[2019-06-17] MEDS: Multivitamin W/ Minerals 1 TAB PO SCH (09:21)
[2019-06-17] MEDS: Gabapentin 300 MG CAP PO SCH (09:21)
[2019-06-17] MEDS: Folic Acid 1 MG TAB PO SCH (09:22)
[2019-06-17] MEDS: Enoxaparin Sodium 40 MG/0.4 ML SYRINGE SC SCH (09:22)
[2019-06-17 11:23] VITALS: BP 128/88; TEMP 98.2
--- NOTE | 2019-06-17 12:32 | CON ---
DATE OF CONSULTATION: 06/17/2019 REASON FOR CONSULTATION: Nonsustained SVT. HISTORY OF PRESENT ILLNESS: Mr. Ortiz is a very pleasant 88-year-old white gentleman, who comes to the hospital for dizziness. He was urinating and about to turn, felt the room spinning, happened Tuesday. He had multiple episodes of same dizziness since trying to reach his walker turning. He did not have any injuries overnight. He fell down. Did not have any severe injuries. This was secondary to dizziness again. Denies any chest pain, tightness, pressure. No shortness of breath. No lightheadedness. Only the dizziness. During his admission, he has been on the surveillance system monitor and he was found to have several runs of nonsustained supraventricular tachycardia. More like what appears to be a paroxysmal atrial tachycardia. He is completely asymptomatic during these episodes. PAST MEDICAL HISTORY: 1. Thoracolumbar disk disease. 2. Steroid shot. 3. COPD. 4. Tonsillectomy. 5. Cataract surgery. 6. Pneumonia back in March. OUTPATIENT MEDICATIONS: None. ALLERGIES: PENICILLIN. SOCIAL HISTORY: Former smoker, three packs a day for about 40 years, quit 25 years ago. No alcohol or drugs. FAMILY HISTORY: Both parents in his 70s of coronary artery disease. Brother with cancer and dialysis. REVIEW OF SYSTEMS: A 12-point review of systems was done and was all negative unless stated in History of Present Illness. PHYSICAL EXAMINATION: VITAL SIGNS: Temperature 98.2, pulse 88, respiratory rate 20, saturating 94% on room air, blood pressure 128/88, however, it has been in the 160s. GENERAL: Awake, alert, oriented x3, in no distress. HEENT: Normocephalic and atraumatic. NECK: Supple. LUNGS: Clear. CARDIOVASCULAR: S1, S2. No S3 or S4. No murmurs. No rubs. ABDOMEN: Soft. Positive bowel sounds. EXTREMITIES: No edema. SKIN: Warm and dry. LABORATORY WORK: White count of 12, hemoglobin of 14, hematocrit 45, platelet count 271. Chemistries are unremarkable except for a glucose of 132. Troponin was undetectable. Triglycerides of 151, cholesterol total of 207, LDL of 122, HDL of 55. TSH was normal. UA was unremarkable except for 1+ blood. Imaging of the brain showed small white matter ischemic changes, otherwise negative. There is cervical spondylosis with high-grade central spinal canal stenosis. Telemetry monitoring was reviewed. Paroxysmal atrial tachycardia about 10 seconds at a time. The longest was about 28 seconds. These episodes were all asymptomatic and did not correlate with his episodes of the room spinning around. ASSESSMENT AND PLAN: 1. Benign positional vertigo. Would agree with Dr. Andrade's evaluation. I think this sounds like BPV. 2. Paroxysmal atrial tachycardia. We will start low-dose beta niyah. This will help his blood pressure little, but mostly to suppress these rhythms as much as possible without slowing his heart too much. 3. Echo pending. 4. Should be able to discharge once echo is read. Thank you for letting us participate in the care of your patient. We will follow. Job ID: [id number]
--- NOTE | 2019-06-17 18:02 | DIS ---
DATE OF ADMISSION: 06/15/2019 DATE OF DISCHARGE: 06/17/2019 DISCHARGE DISPOSITION: Home. FOLLOWUP: 1. Follow up with primary care physician, Dr. Teja Bravo, in 1 week. 2. Follow up with Cardiology, Dr. Cade in 3 to 4 weeks. 3. An outpatient ENT evaluation is recommended. Primary care physician advised to follow. ALLERGIES: THE PATIENT IS ALLERGIC TO PENICILLIN. DISCHARGE MEDICATIONS: Toprol-XL 25 mg daily. All other home medications were left unchanged. The patient was also advised to take vitamin B12 and folic acid. BRIEF HOSPITAL COURSE: The patient is an 88-year-old male, who presented to the hospital with dizziness along with spinning sensation. Please refer to the history and physical dated 15 Jun 2019 for further details. The patient was admitted to the hospital with a diagnosis of dizziness/vertigo, rule out posterior CVA. His initial CT brain was negative for acute findings. An MRI of the brain was obtained that showed mild to moderate chronic ischemic white matter changes. Echocardiogram showed left ventricular ejection fraction of 50% to 55% with grade 1 of 3 diastolic dysfunction, mild mitral regurgitation, mild tricuspid regurgitation. He also developed paroxysmal atrial tachycardia on the tele monitor. For this reason, he was evaluated by Cardiology. He has been started on Toprol-XL by Dr. Cade. He will benefit from an outpatient ENT evaluation. The patient was also advised to follow up with Neurosurgery as outpatient for cervical spondylosis and stenosis. FINAL DIAGNOSES: 1. Dizziness/vertigo, suspected benign positional vertigo. 2. Near syncope, suspected due to paroxysmal atrial tachycardia, started on low-dose beta niyah. 3. Chronic obstructive pulmonary disease. 4. Former smoker. 5. Cervical degenerative joint disease, followed by Dr. Gibson. 6. Benign prostatic hypertrophy. 7. Penicillin allergy. 8. Mild mitral regurgitation. 9. Mild tricuspid regurgitation. 10. Chronic diastolic heart failure, compensated. 11. Hyperlipidemia. Fasting lipid profile showed triglyceride of 151, cholesterol of 207, LDL 122, HDL of 55. 12. Leukocytosis unlikely to be infectious. 13. The patient understands the above plan of care. Job ID: [id number]
--- NOTE | 2019-06-20 11:58 | EKG ---
Test Reason : Blood Pressure : / mmHG Vent. Rate : 080 BPM Atrial Rate : 080 BPM P-R Int : 152 ms QRS Dur : 076 ms QT Int : 382 ms P-R-T Axes : 034 007 058 degrees QTc Int : 440 ms Sinus rhythm with marked sinus arrhythmia with frequent Premature ventricular complexes Otherwise normal ECG When compared with ECG of 15-JUN-2019 11:32, (Unconfirmed) No significant change was found Confirmed by DR. Ole RODRIGUEZ ([id number]), editorial assistant PERICO CARDENAS ([id number]) on 06/20/2019 11:57:47 AM Referred By: LAURIE Confirmed By:DR. Ole RODRIGUEZ
== END 2019-06-17 13:38 | disposition home health service (06) ==
LOC: ERS 11:22 → 2SE 15:44
PROVIDERS: ADMIT Internal Medicine; ATTEND Internal Medicine
DX: H81.10 Benign paroxysmal vertigo, unspecified ear (principal); J44.9 Chronic obstructive pulmonary disease, unspecified; N40.0 Benign prostatic hyperplasia without lower urinary tract symptoms; I08.1 Rheumatic disorders of both mitral and tricuspid valves; E78.5 Hyperlipidemia, unspecified; D72.829 Elevated white blood cell count, unspecified; M47.812 Spondylosis without myelopathy or radiculopathy, cervical region; M48.02 Spinal stenosis, cervical region; M51.35 Other intervertebral disc degeneration, thoracolumbar region; Z87.891 Personal history of nicotine dependence; Z88.0 Allergy status to penicillin
CPT/HCPCS: 70450; 70551; 71045; 72125; 80048 ×2; 80061; 83735; 84443; 84484; 85025; 93005 ×2; 93306; 94760 ×2; 96361 ×2; 96372 ×2; 96374; 97116; 97139 ×6; 99285; G0378 ×4; 36415; 80053; 81003; 81015; 93010; J1650; J2405